=== PATIENT | female | born 1950 | race Caucasian/White ===

== ENCOUNTER → 2017-11-01 16:00 | Outpatient (CLI) | payer OTHER, SELFPAY ==
[2017-11-01 17:58] LABS: ALB/GLOB Ratio 1.1 RATIO (0.9-2.4); AST(SGOT) 29 U/L (15-37); Alanine Aminotransfer ALT/SGPT 31 U/L (13-56); Albumin, Serum 3.6 g/dL (3.2-5.0); Alkaline Phosphatase 81 U/L (45-117); Anion Gap 8 (5-15); BUN 21 mg/dL (7-18); BUN/Creat Ratio 37.9 RATIO (10-20); Calcium,Total 8.8 mg/dL (8.5-10.1); Chloride 109 mmol/L (98-107); Creatinine, Serum 0.55 mg/dL (0.55-1.02); EST Glomerular Filtration Rate 117 mL/min (>60); Est Glom Filt Rate - Afr Amer 141 mL/min (>60); Globulin 3.3 g/dL (2.2-4.2); Glucose 94 mg/dL (74-106); Potassium 3.7 mmol/L (3.5-5.1); Protein, Total 6.9 g/dL (6.4-8.2); Sodium Level 144 mmol/L (136-145)
== END ==
PROVIDERS: Family Provider Family Medicine; PCP Family Medicine; Visit Provider Family Medicine
DX: Z00.00 Encounter for general adult medical examination without abnormal findings (principal); I10 Essential (primary) hypertension
CPT/HCPCS: 36415; 80053

== ENCOUNTER → 2017-11-02 15:14 | Outpatient (CLI) | payer OTHER, SELFPAY | PROVIDERS: Family Provider Family Medicine; PCP Family Medicine; Visit Provider Family Medicine | DX: Z00.00 Encounter for general adult medical examination without abnormal findings (principal) | CPT/HCPCS: 82274 ==

== ENCOUNTER → 2017-11-28 15:53 | Outpatient (CLI) | payer OTHER, SELFPAY ==
--- NOTE | 2017-11-28 15:54 | BI_ITS ---
MAMMOGRAPHY - BILATERAL SCREENING REASON FOR EXAM: Female, 67 years old. Routine annual screening examination. PERTINENT HISTORY: Non-contributory. TECHNIQUE: Digital bilateral breast tony (3D mammographic acquisition) in the CC and MLO projections. 2-D mediolateral oblique (MLO) and craniocaudad (CC) views of both breasts were obtained. CAD: Full Field Digital Mammography with Computer Added Detection was performed. COMPARISON: Comparison is made with prior study dated November 27, 2016 and November 25, 2015. FINDINGS: Breast Composition: There are scattered areas of fibroglandular density. There are no dominant masses or suspicious calcifications. A tissue clip marker is once again seen in the anterior inferior medial portion of the right breast. Stable appearance of the small nodular density in the biopsy site in the inferior medial portion of the right breast. No other significant abnormalities are identified. There has been no significant change since the prior study. BI/SCREENING MAMM (CAD), BILAT IMPRESSION: Stable bilateral screening mammogram. Yearly follow-up mammogram recommended. (A) ASSESSMENT CATEGORY: BIRADS Category 2: Benign. A letter regarding these results will be sent to the patient by the facility within 30 days. Approximately 10% of breast cancers are not detected by mammography. A normal mammogram should not delay biopsy of a clinically suspicious abnormality. [id number] Electronically Signed: Herbert Hsieh MD at 8:55 EDT Tel [phone], Service support ,
== END ==
PROVIDERS: Family Provider Family Medicine; PCP Family Medicine; Visit Provider Family Medicine
DX: Z12.31 Encounter for screening mammogram for malignant neoplasm of breast (principal)
CPT/HCPCS: 77063; 77067

== ENCOUNTER 2017-12-31 10:58 | Day surgery (SDC) | payer OTHER, MEDICARE, SELFPAY ==
--- NOTE | 2017-12-25 11:53 | EKG12_ITS ---
Test Reason : PRE-OP Blood Pressure : / mmHG Vent. Rate : 072 BPM Atrial Rate : 072 BPM P-R Int : 144 ms QRS Dur : 092 ms QT Int : 398 ms P-R-T Axes : 059 028 038 degrees QTc Int : 435 ms Normal sinus rhythm Possible Left atrial enlargement Borderline ECG Confirmed by CHERYL CH, GRISELDA ([id number]), assignment editor VANESSA FOURNIER ([id number]) on 12/26/2017 11:18:37 AM Referred By: Eliecer Arita Confirmed By:GRISELDA LUNA MD
[2017-12-25 12:37] LABS: Hematocrit 43.5 % (37-47); Hemoglobin 14.7 g/dl (12.0-15.0); Mean Corp Hgb Conc 33.8 g/gl (32-36); Mean Corpuscular Hgb 30.4 pg (27.0-32.0); Mean Corpuscular Volume 90.1 fL (81-99); Mean Platelet Vol. 10.3 fl (6.2-12.0); Platelet Count 154 K/mm3 (150-450); RBC Distribution Width CV 12.6 % (11.6-14.6); RBC Distribution Width SD 41.3 fl (35.1-43.9); Red Blood Count 4.83 M/mm3 (4.2-5.4); White Blood Count 5.5 K/mm3 (4.4-11.0)
[2017-12-25 12:41] LABS: Scan Indicated on CBC? Y/N NO
[2017-12-25 13:20] LABS: Anion Gap 8 (5-15); BUN 11 mg/dL (7-18); BUN/Creat Ratio 19.3 RATIO (10-20); Calcium,Total 9.3 mg/dL (8.5-10.1); Chloride 108 mmol/L (98-107); Creatinine, Serum 0.57 mg/dL (0.55-1.02); EST Glomerular Filtration Rate 113 mL/min (>60); Est Glom Filt Rate - Afr Amer 137 mL/min (>60); Glucose 91 mg/dL (74-106); Potassium 3.7 mmol/L (3.5-5.1); Sodium Level 142 mmol/L (136-145)
[2017-12-31 11:25] VITALS: BP 158/80; PULSE 88; RESP 16; TEMP 37.3; O2SAT 97; BMI 35.4
[2017-12-31] MEDS: Cefazolin 2 GM in 0.9% Normal Saline 100 ML IV (12:18)
[2017-12-31] MEDS: Bupiv/Epi 0.5% Mpf 30 ML Vial (13:10)
--- NOTE | 2017-12-31 13:16 | PCM.IMDPSTOP ---
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
[2017-12-31 13:30] VITALS: BP 146/94; BP 158/80; PULSE 81; RESP 16; TEMP 36; O2SAT 99
[2017-12-31 13:45] VITALS: BP 158/80; BP 159/86; PULSE 78; RESP 16; O2SAT 95
[2017-12-31 14:00] VITALS: BP 150/76; BP 158/80; PULSE 68; RESP 16; O2SAT 95
[2017-12-31 14:14] VITALS: BP 130/82; BP 158/80; PULSE 71; RESP 16; TEMP 36.4; O2SAT 92
--- NOTE | 2017-12-31 14:15 | PCM.OP.BLANK ---
Operative Report Date of Procedure: 12/31/17 Primary Surgeon/Physician: Leno Longoria occupational health and safety officer: occupational health and safety officer: Pre-Operative Diagnosis: MMT, Grade 2 chondromalacia medial femoral condyle and patella, medial tibial plateau stress fracture left knee Post-Operative Diagnosis: same Surgery/Procedure Performed: Diagnostic and operative arthroscopy left knee with arthroscopic partial medial meniscectomy, chondroplasty medial femoral condyle and patella with biologic internal fixation stress fracture left tibia Estimated Blood Loss: minimal Specimen's Removed: none Type of Anesthesia: general ASA Class: 2 Indications: [Preoperative MRI revealed a medial meniscus tear, chondromalacia of the medial femoral condyle and patella and a medial tibial stress fx. ] Patient has failed conservative measures and at this point has elected to undergo the above procedure. Procedure Description: The patient was greeted in the preoperative area. The [left ] knee was marked with surgical marker. Preoperative antibiotics were administered. The patient was then taken to the operating suite and placed in a supine position on operating room table. After adequate anesthesia was obtained and airway was secured a well-padded tourniquet was placed on patient's affected extremity. Leg was then prepped and draped in usual sterile fashion. Surgical timeout was performed and confirmed with all present and surgery was commenced. Standard anteromedial anterolateral portals were made and a 30? arthroscope was then inserted into the knee. [ ]. The patellofemoral joint revealed grade 2 chondromalacia of the patella. The medial compartment was entered and the medial portal was established. Ther was noted to be grade 2 chondromalacia of the medial femoral condyle. A probe was utilized to probe the medial meniscus and there was noted to be a horizontal tear of the posterior horn emanating into the root. The ACL and PCL were probed and intact. The lateral compartment was entered and found to be free of pathology. A partial medial meniscectomy was performed with straight and angled basket punches. The meniscotome shaver was then used to remove the meniscal fragments and shape the remainder of the meniscus to a firm and stable rim. The shaver was then used to perform a chondroplasty on the medial femoral condyle and patella. The C-arm was then used to locate the area in question on the medial tibial plateau. The skin was marked in this area and a small stab incision was made over the medial tibial plateau. Th C-arm was then utilized to place the Nan trocar for the subchondroplasty procedure in the area of stress fracture on the medial tibial plateau. This placement was verified in orthogonal planes using the C-arm image intensifier. The biologic bone cement was then prepared on the back table. A total of 4 1 cc syringes were placed into the fracture site. C-arm flouroscopy was used to verify appropriate placement. The arthroscopy instruments were placed back into the knee to verify that no extravasation of biologic material had occurred into the joint. With this having been verified, the biologic bone fixation material was allowed to cure for 8 minutes. At this point all instruments were removed. Arthroscopic portals were closed in a standard fashion. 30 cc of 0.5% Marcaine was then injected into the knee. Well-padded nonadherent dressing was applied and secured with an Cedric wrap. The patient was taken to the recovery room in stable condition.
[2017-12-31 15:09] VITALS: BP 131/69; BP 158/80; PULSE 83; RESP 18; TEMP 37.1; O2SAT 96
== END 2017-12-31 15:12 | disposition home or self-care (01) ==
LOC: SDC 10:58 → AC 10:59
PROVIDERS: Physician Assistant; Family Provider Family Medicine; PCP Family Medicine; Visit Provider Orthopaedic Surgery
PROC: 3E0U3GB Introduction of Recombinant Bone Morphogenetic Protein into Joints, Percutaneous Approach (ICD-10-PCS; CPT 0707T; principal; 2017-12-31 12:10)
DX: M84.362A Stress fracture, left tibia, initial encounter for fracture (principal); M22.42 Chondromalacia patellae, left knee; S83.242A Other tear of medial meniscus, current injury, left knee, initial encounter; X58.XXXA Exposure to other specified factors, initial encounter; I10 Essential (primary) hypertension; Z79.899 Other long term (current) drug therapy; M19.90 Unspecified osteoarthritis, unspecified site
CPT/HCPCS: 01400; 29855; 29881; 36415; 73560; 76000; 80048; 85027; 93005; C1713; J7120; J2405

== ENCOUNTER → 2018-11-13 | Outpatient (CLI) | payer OTHER, MEDICARE, SELFPAY ==
[2018-11-12 14:32] VITALS: BMI 35.4
[2018-11-13 12:37] LABS: BUN 16 mg/dL (7-18); BUN/Creat Ratio 23.8 RATIO (10-20); Calcium,Total 9.4 mg/dL (8.5-10.1); Chloride 105 mmol/L (98-107); Creatinine, Serum 0.67 mg/dL (0.55-1.02); EST Glomerular Filtration Rate 93 mL/min (>60); Est Glom Filt Rate - Afr Amer 113 mL/min (>60); Glucose 106 mg/dL (74-106); Potassium 3.8 mmol/L (3.5-5.1); Sodium Level 144 mmol/L (136-145)
[2018-11-13 12:38] LABS: Anion Gap 9 (5-15)
== END | disposition home or self-care (01) ==
LOC: BIMLAB 09:44
PROVIDERS: Family Provider Family Medicine; PCP Family Medicine; Visit Provider Family Medicine
DX: I10 Essential (primary) hypertension (principal)
CPT/HCPCS: 36415; 80048

== ENCOUNTER → 2018-12-02 | Outpatient (CLI) | payer OTHER, MEDICARE, SELFPAY ==
[2018-11-12 14:32] VITALS: BMI 35.4
--- NOTE | 2018-12-02 15:43 | BI_ITS ---
MAMMOGRAPHY - BILATERAL SCREENING 3-D TOMOSYNTHESIS REASON FOR EXAM: Female, 68 years old. Bilateral Screening 3-D tomosynthesis PERTINENT HISTORY: No significant family history. TECHNIQUE: 2-D mammograms and 3-D Tomosynthesis of the breast (s) were performed. CAD was performed. COMPARISON: 11/28/2017 FINDINGS: The breast composition is composed of scattered fibroglandular density. Scattered benign calcifications are seen. No dense spiculated masses or suspicious microcalcifications are identified. No architectural distortion is identified. There is no skin thickening or retraction. There has been no significant change since the prior study. BI/SCREEN MAMM (CAD) W/JUAN LUIS BILAT IMPRESSION: No mammographic signs of malignancy. Routine yearly mammograms recommended. ASSESSMENT CATEGORY: BIRADS Category 1: Negative. A letter regarding these results will be sent to the patient by the facility within 30 days. FOLLOW UP RECOMMENDATION: Yearly follow up mammogram recommended. (A) Approximately 10% of breast cancers are not detected by mammography. A normal mammogram should not delay biopsy of a clinically suspicious abnormality. Electronically Signed: Sandip Sher MD at 7:47 EDT , Service support ,
== END | disposition home or self-care (01) ==
LOC: OPBI 15:41
PROVIDERS: Family Provider Family Medicine; PCP Family Medicine; Referring Provider Family Medicine; Visit Provider Family Medicine
DX: Z12.31 Encounter for screening mammogram for malignant neoplasm of breast (principal)
CPT/HCPCS: 77063; 77067

== ENCOUNTER → 2019-12-16 16:15 | Outpatient (CLI) | payer OTHER, MEDICARE, SELFPAY ==
[2019-12-16 15:51] VITALS: BMI 35.4
[2019-12-16 17:05] LABS: Anion Gap 6 (5-15); BUN 16 mg/dL (7-18); BUN/Creat Ratio 24.5 RATIO (10-20); Calcium,Total 9.4 mg/dL (8.5-10.1); Chloride 105 mmol/L (98-107); Creatinine, Serum 0.65 mg/dL (0.55-1.02); EST Glomerular Filtration Rate 96 mL/min (>60); Est Glom Filt Rate - Afr Amer 116 mL/min (>60); Glucose 95 mg/dL (74-106); Potassium 3.6 mmol/L (3.5-5.1); Sodium Level 139 mmol/L (136-145)
== END ==
PROVIDERS: PCP Family Medicine; Referring Provider Family Medicine; Visit Provider Family Medicine
DX: I10 Essential (primary) hypertension (principal)
CPT/HCPCS: 36415; 80048

== ENCOUNTER → 2020-12-21 15:45 | Outpatient (CLI) | payer OTHER, MEDICARE, SELFPAY ==
[2020-12-16 16:20] VITALS: BMI 35.4
[2020-12-21 17:12] LABS: ALB/GLOB Ratio 1.2 RATIO (0.9-2.4); AST(SGOT) 25 U/L (15-37); Alanine Aminotransfer ALT/SGPT 32 U/L (13-56); Albumin, Serum 3.9 g/dL (3.2-5.0); Alkaline Phosphatase 64 U/L (45-117); Anion Gap 8 (5-15); BUN 20 mg/dL (7-18); BUN/Creat Ratio 32.5 RATIO (10-20); Calcium,Total 9.3 mg/dL (8.5-10.1); Chloride 106 mmol/L (98-107); Creatinine, Serum 0.62 mg/dL (0.55-1.02); EST Glomerular Filtration Rate 102 mL/min (>60); Est Glom Filt Rate - Afr Amer 124 mL/min (>60); Globulin 3.3 g/dL (2.2-4.2); Glucose 162 mg/dL (74-106); Potassium 3.2 mmol/L (3.5-5.1); Protein, Total 7.2 g/dL (6.4-8.2); Sodium Level 141 mmol/L (136-145)
== END ==
PROVIDERS: PCP Family Medicine; Referring Provider Family Medicine; Visit Provider Family Medicine
DX: I10 Essential (primary) hypertension (principal)
CPT/HCPCS: 36415; 80053

== ENCOUNTER → 2021-01-04 17:00 | Outpatient (CLI) | payer OTHER, MEDICARE, SELFPAY ==
[2020-12-16 16:20] VITALS: BMI 35.4
--- NOTE | 2021-01-04 16:22 | BI_ITS ---
MAMMOGRAPHY - BILATERAL SCREENING REASON FOR EXAM: Female, 71 years old. Routine annual screening examination. PERTINENT HISTORY: Non-contributory. History of prior right ultrasound-guided breast biopsy. TECHNIQUE: Digital bilateral breast juan luis (3D mammographic acquisition) in the CC and MLO projections. 2-D mediolateral oblique (MLO) and craniocaudad (CC) views of both breasts were obtained. CAD: Full Field Digital Mammography with Computer Added Detection was performed. COMPARISON: Comparison is made with prior study dated 12/02/2018 and 11/28/2017. FINDINGS: Breast Composition: There are scattered areas of fibroglandular density. There are no dominant masses or suspicious calcifications. A tissue clip marker is once again seen in the anterior inferior medial portion of the right breast at the site of a tiny nodule. No other significant abnormalities are identified. There has been no significant change since the prior study. BI/SCRN MAMM (CAD)W/JUAN LUIS BILAT IMPRESSION: Stable bilateral screening mammogram. Yearly follow-up mammogram recommended. (A) ASSESSMENT CATEGORY: BIRADS Category 2: Benign. A letter regarding these results will be sent to the patient by the facility within 30 days. Approximately 10% of breast cancers are not detected by mammography. A normal mammogram should not delay biopsy of a clinically suspicious abnormality. [id number] Electronically Signed: Herbert Hsieh MD at 8:37 EDT , Service support ,
== END ==
PROVIDERS: PCP Family Medicine; Referring Provider Family Medicine; Visit Provider Family Medicine
DX: Z12.31 Encounter for screening mammogram for malignant neoplasm of breast (principal)
CPT/HCPCS: 77063; 77067

== ENCOUNTER → 2021-01-18 15:23 | Outpatient (CLI) | payer OTHER, MEDICARE, SELFPAY ==
[2021-01-18 16:53] LABS: Potassium 3.6 mmol/L (3.5-5.1)
[2021-01-18 17:06] LABS: Hemoglobin A1c 5.6 % (3.8-5.6)
== END ==
PROVIDERS: PCP Family Medicine; Referring Provider Family Medicine; Visit Provider Family Medicine
DX: E87.6 Hypokalemia (principal); R73.01 Impaired fasting glucose
CPT/HCPCS: 36415; 83036; 84132

== ENCOUNTER 2021-06-03 06:49 | Day surgery (SDC) | payer OTHER, MEDICARE, SELFPAY ==
--- NOTE | 2021-05-26 12:07 | EKG12_ITS ---
Test Reason : PRE OP Blood Pressure : / mmHG Vent. Rate : 077 BPM Atrial Rate : 077 BPM P-R Int : 136 ms QRS Dur : 088 ms QT Int : 374 ms P-R-T Axes : 053 015 012 degrees QTc Int : 423 ms Normal sinus rhythm Normal ECG Confirmed by ADRIANE CH, KEL ([id number]), brands editor TRU LOVE ([id number]) on 05/27/2021 7:46:43 AM Referred By: Leno Longoria Confirmed By:SAMUEL FORREST MD
[2021-05-26 12:39] LABS: Hematocrit 44.9 % (37-47); Hemoglobin 14.6 g/dL (12.0-15.0); Mean Corp Hgb Conc 32.5 g/dL (32-36); Mean Corpuscular Hgb 29.6 pg (27.0-32.0); Mean Corpuscular Volume 91.1 fL (81-99); Mean Platelet Vol. 9.5 fl (6.2-12.0); Platelet Count 160 K/mm3 (150-450); RBC Distribution Width CV 12.3 % (11.6-14.6); RBC Distribution Width SD 41.3 fl (35.1-43.9); Red Blood Count 4.93 M/mm3 (4.2-5.4)
[2021-05-26 12:58] LABS: Anion Gap 5 (5-15); BUN 16 mg/dL (7-18); Calcium,Total 9.8 mg/dL (8.5-10.1); Chloride 106 mmol/L (98-107); Creatinine, Serum 0.64 mg/dL (0.55-1.02); EST Glomerular Filtration Rate 98 mL/min (>60); Est Glom Filt Rate - Afr Amer 118 mL/min (>60); Glucose 109 mg/dL (74-106); Potassium 3.8 mmol/L (3.5-5.1); Sodium Level 140 mmol/L (136-145)
--- NOTE | 2021-05-26 16:50 | PCM.HP.BLA ---
History and Physical History and Physical [facility] Patient Name: Megan Rene : 1950 From: [facility] DE [place] [facility] PA-C DATE OF SURGERY: 06/03/2021 SCHEDULED PROCEDURE: right knee arthroscopy with medial meniscectomy and subchondroplasty of the medial tibial plateau HISTORY OF PRESENT ILLNESS: Preoperative history and physical exam was performed on October 23, 2021. This is a 71-year-old female who is been having ongoing pain since the end of March 2021. Patient cannot recall specific trauma or injury. Her pain has been intermittent and dull. It can still reach as high as a 7/10 at worst and 5/10 on average. Activities of daily living and range of motion exercises aggravate her pain. Patient has tried Cedric wrap, topical ointments, and nonsteroidal anti-inflammatory including naproxen and glucosamine chondroitin. Patient has been using a walker secondary to the pain in the right knee. Patient has had an MRI of the right knee. She has had a similar procedure done on the left knee in 2018 and doing well from that procedure. She currently denies any chest pain, shortness of breath, fevers chills, recent infections. She has medical history pertinent for hypertension. After failing conservative measures and discussing treatment options with Dr. Leno Longoria, the patient does wish to proceed with a right knee arthroscopy with medial meniscectomy and subchondroplasty of the medial tibial plateau. REVIEW OF SYSTEMS: ROS: Const: Denies change in appetite, fever and weight change. CV: Denies chest pain, heart murmur and irregular heartbeat. Resp: Denies cough, pneumonia, shortness of breath, tuberculosis and wheezing. GI: Denies constipation, diarrhea, heartburn, nausea, rectal itching, bloody stools and vomiting. : Reports incontinence. Musculo: Reports trouble walking, but denies leg swelling, pain and weakness. Skin: Denies Raynaud's, history of shingles and tattoo. Neuro: Denies ambulatory dysfunction, dizziness, numbness/tingling and tremor. Psych: Denies anxiety, insomnia and stress. Devon/Lymph: Denies anemia, bleeding/bruising tendency and past transfusion. Reviewed, no changes. PAST MEDICAL HISTORY: Advance Care Plan: No Advance Directives Effective Date: 12/06/2017 PMH: Medical Problems: Arthritis, High Blood Pressure Accidents: None Surgical Hx: Gallbladder - (2000) [facility] DR EDDY Tubal Ligation - (1979) [facility] DR SALEH LT Knee Arthroscopy - (12/31/2017) [facility] @ [facility] Anesthesia Complications: None Assistive Devices: Glasses, Dentures Reviewed and updated. SOCIAL HISTORY: SH: Marital: .Occupation: [employer].Work Status: Currently Working.Hand Dominance: Left-handed. Personal Habits: Cigarette Use: Never Smoked Cigarettes.Smokeless Tobacco: Never Used Smokeless Tobacco.E-Cigarette Use: Never used.Alcohol: Denies use.Drug Use: Denies Use.Enjoy Exercising: Exercises 1-3 X/Week. Reviewed and updated. VITALS: Ht: 61 Wt: 180lb Wt k.648 BMI: 34.0 BP: 142/82 Pulse: 82 Resp: 16 T: 97.4 T: 36.3C Pain Level: 3 ALLERGIES: Sulfa - Hives MEDICATIONS: [place] 5-325 mg 1-2 by mouth every 6 hour as needed pain, Calcium + D3 600-200 MG-Unit 2 tabs daily, Klor-Con M10 10 Meq 2 tabs daily, Olmesartan Medoxomil 40 mg by mouth, Hydrochlorothiazide 25 mg 1 by mouth every day, Move Free Joint Health Advanced 1 by mouth twice a day, Aleve 220 mg as needed PRE-OP EXAM: General appearance:NORMAL Other: Eyes: Conjunctivae and lids: NORMAL Pupils: ERR Ears, Nose, Mouth, and Throat: NORMAL Other: Inspection of lips, teeth and gums: NORMAL Other: Neck: Examination of neck: no masses noted. Respiratory: Assessment of respiratory effort: NORMAL Other: Auscultation of lungs: clear to auscultation no wheezes, rhonchi or rales. Cardiovascular: Auscultation of heart: regular rate and rhythm, no murmurs, gallops or rubs. PHYSICAL EXAMINATION: Right knee is cool to touch without erythema or signs of infection. There is trace effusion. She has tenderness to palpation along the medial joint line and tibial plateau. Range of motion: 0 extension to approximately 100 flexion. Stable to varus/valgus stress test, stable anterior/posterior drawer. Positive pain associated with Lemuel's examination. Sensation intact to light touch. IMAGING STUDIES: Previous x-rays of the right knee reveal moderate medial compartmental osteoarthritis and patellofemoral compartment osteoarthritis with mild bilateral osteoarthritis. Previous MRI of the right knee from [facility] on May 12, 2021 does reveal a medial meniscus tear with stress fracture of the medial tibial rim. IMPRESSION: 1. Right knee medial meniscus tear 2. Right knee medial tibial plateau stress fracture 3. Right knee osteoarthritis 4. Hypertension PLAN: Dr. Leno Longoria did discuss and review with the patient all treatment options including surgical versus nonsurgical options. Patient does wish to proceed with the above-stated procedure. Potential risks, benefits, and complications of the procedure were discussed in detail including but not limited to , infection, nerve and blood vessel damage, persistent pain, numbness, tingling, paresthesias, blood clot, pulmonary embolism, and requirement for possible further surgery. The patient expressed full understanding and has no further questions for the doctor. Patient does agree to proceed with the above-stated procedure and has signed the surgery consent form. Patient will undergo preoperative lab work and EKG. She will bring her walker 2 day of procedure. She'll be weightbearing as tolerated following the procedure. She was given [place] for postoperative pain control. We discussed the current risks associated with COVID 19. This does include the risk of exposure while in the hospital. Patient was reassured local hospitals have low infection rates and are taking all necessary precautions to avoid exposure to patients. In addition, we discussed strategies that can be used to help limit exposure including those that limit the patient's time in the hospital. Also using strategies to limit the patient's need for continued inpatient services after being discharged from the hospital. Patient was notified that we will need to comply with any screening or testing the hospital wishes to perform or that surgery may be delayed for any positive results. This dictation was created using voice recognition software. Phonetic and/or grammatical errors may exist. ___ I have re-examined the patient. There are no clinical changes since date of exam. ___ See progress notes for changes. ___ Dictated on admission Date: Time: Signature:
[2021-06-03] VITALS (7 sets, daily range): BP systolic 112–133; BP diastolic 61–82; PULSE 65–86; RESP 16; TEMP 36.2–36.9; O2SAT 95–99; BMI 34.8
[2021-06-03] MEDS: Lactated Ringers 1,000 ML 15 ML IV ×2 (07:23→09:58)
--- NOTE | 2021-06-03 08:29 | RAD_ITS ---
STUDY: X-RAY - RIGHT KNEE REASON FOR EXAM: Female, 71 years old. Intraoperative digital documentation images subchondroplasty. TECHNIQUE: 3 intraoperative digital documentation view(s) of the knee. COMPARISON: None. FINDINGS: 3 intraoperative digital documentation images show surgical instrument projected over the medial tibial plateau. Contrast is noted. RAD/Knee 1 or 2 Views IMPRESSION: Intraoperative digital documentation views as described. Electronically Signed: Eliecer Romo MD at 10:00 EST , Service support ,
[2021-06-03] MEDS: Cefazolin 2 GM in 0.9% Normal Saline 100 ML IV (08:39)
[2021-06-03] MEDS: Epinephrine (1 mg/ml) 1 MG/ML VIAL (09:00)
[2021-06-03] MEDS: Lidocaine 1% /Epi 1:100 (50ml) 50 ML VIAL (09:25)
[2021-06-03] MEDS: Ketorolac 15 MG/ML Vial IV (09:28)
--- NOTE | 2021-06-03 09:34 | OP.PCM_ITS ---
Report of Operation Date of Procedure: 06/03/21 Pre-Operative Diagnosis: Internal derangement right knee Post-Operative Diagnosis: MMT, Grade 3 and 4 chondromalacia MFC and PFJ, subchondral insufficiency fracture medial tibial plateau Surgery/Procedure Performed:: Diagnostic and operative arthroscopy with partial medial meniscectomy, chondroplasty of the MFC and PFJ and subchondroplasty of the medial tibial plateau Surgeon: Leno Longoria pickers material handlers: Jero Altman Type of Anesthesia: General Anesthesiologist: Chace Marquez Admit VTE Documentation VTE Present on Admission: No VTE Mechan Device Prophylaxis: SCD's and Thigh High MONICA Hose Reason prophylaxis not ordered:: Treatment Not Indicated
== END 2021-06-03 23:59 | disposition home or self-care (01) ==
LOC: SDC 06:49 → AC 06:49
PROVIDERS: Physician Assistant Surgical; PCP Family Medicine; Referring Provider Orthopaedic Surgery; Visit Provider Orthopaedic Surgery
PROC: (CPT 29881; principal; 2021-06-03 08:10)
DX: S83.241A Other tear of medial meniscus, current injury, right knee, initial encounter (principal); M17.11 Unilateral primary osteoarthritis, right knee; M22.41 Chondromalacia patellae, right knee; S82.131A Displaced fracture of medial condyle of right tibia, initial encounter for closed fracture; I10 Essential (primary) hypertension; M19.90 Unspecified osteoarthritis, unspecified site; Z79.899 Other long term (current) drug therapy
CPT/HCPCS: 29881; 01400; 29855; 36415; 73560; 76000; 80048; 85027; 87426; 93005; C1713; C9803; J7120; J2405

== ENCOUNTER → 2022-01-26 | Outpatient (CLI) | payer OTHER, MEDICARE, SELFPAY ==
[2022-01-26 16:47] LABS: Anion Gap 6 (5-15); BUN 17 mg/dL (7-18); BUN/Creat Ratio 21.7 RATIO (10-20); Calcium,Total 9.4 mg/dL (8.5-10.1); Chloride 106 mmol/L (98-107); Creatinine, Serum 0.78 mg/dL (0.55-1.02); EST Glomerular Filtration Rate 77 mL/min (>60); Est Glom Filt Rate - Afr Amer 93 mL/min (>60); Glucose 104 mg/dL (74-106); Potassium 3.6 mmol/L (3.5-5.1); Sodium Level 140 mmol/L (136-145)
== END | disposition home or self-care (01) ==
LOC: BIMLAB 15:32
PROVIDERS: PCP Family Medicine; Referring Provider Family Medicine; Visit Provider Family Medicine
DX: E87.6 Hypokalemia (principal)
CPT/HCPCS: 36415; 80048

== ENCOUNTER → 2022-02-14 | Outpatient (CLI) | payer OTHER, MEDICARE, SELFPAY ==
--- NOTE | 2022-02-14 15:49 | BI_ITS ---
MAMMOGRAPHY - BILATERAL SCREENING REASON FOR EXAM: Female, 72 years old. Routine annual screening examination. PERTINENT HISTORY: Non-contributory. Prior right ultrasound-guided breast biopsy. TECHNIQUE: Digital bilateral breast juan luis (3D mammographic acquisition) in the CC and MLO projections. 2-D mediolateral oblique (MLO) and craniocaudad (CC) views of both breasts were obtained. CAD: Full Field Digital Mammography with Computer Added Detection was performed. COMPARISON: Comparison is made with prior study 01/04/2021 and 12/03/1999. FINDINGS: Breast Composition: There are scattered areas of fibroglandular density. There are no dominant masses or suspicious calcifications. A tissue clip marker is once again seen in the anterior inferior medial portion of the right breast. No other significant abnormalities are identified. There has been no significant change since the prior study. BI/SCRN MAMM (CAD)W/JUAN LUIS BILAT IMPRESSION: Stable bilateral screening mammogram. Yearly follow-up mammogram recommended. (A) ASSESSMENT CATEGORY: BIRADS Category 2: Benign. A letter regarding these results will be sent to the patient by the facility within 30 days. Approximately 10% of breast cancers are not detected by mammography. A normal mammogram should not delay biopsy of a clinically suspicious abnormality. [id number] Electronically Signed: Herbert Hsieh MD at 21:21 EDT ,
== END | disposition home or self-care (01) ==
LOC: OPBI 15:48
PROVIDERS: PCP Family Medicine; Visit Provider Family Medicine
DX: Z12.31 Encounter for screening mammogram for malignant neoplasm of breast (principal)
CPT/HCPCS: 77063; 77067

== ENCOUNTER → 2023-02-02 | Outpatient (CLI) | payer OTHER, MEDICARE, SELFPAY ==
[2023-02-02 17:00] LABS: AST(SGOT) 17 U/L (15-37); Alanine Aminotransfer ALT/SGPT 26 U/L (13-56); Albumin, Serum 3.5 g/dL (3.2-5.0); Alkaline Phosphatase 74 U/L (45-117); Anion Gap 5 (5-15); BUN 24 mg/dL (7-18); BUN/Creat Ratio 37.2 RATIO (10-20); Calcium,Total 9.1 mg/dL (8.5-10.1); Chloride 113 mmol/L (98-107); Cholesterol 161 mg/dL (200); Creatinine, Serum 0.65 mg/dL (0.55-1.02); EST Glomerular Filtration Rate 96 mL/min (>60); Est Glom Filt Rate - Afr Amer 116 mL/min (>60); Globulin 3.4 g/dL (2.2-4.2); Glucose 98 mg/dL (74-106); High Density Lipoprotein 55 mg/dL; Potassium 3.6 mmol/L (3.5-5.1); Protein, Total 6.9 g/dL (6.4-8.2); Sodium Level 143 mmol/L (136-145); Triglycerides 84 mg/dL; Very Low Density Lipoprotein 17 mg/dL (5-40)
== END | disposition home or self-care (01) ==
LOC: BIMLAB 15:12
PROVIDERS: PCP Family Medicine; Referring Provider Family Medicine; Visit Provider Family Medicine
DX: I10 Essential (primary) hypertension (principal)
CPT/HCPCS: 36415; 80053; 80061

== ENCOUNTER → 2023-02-19 | Outpatient (CLI) | payer OTHER, MEDICARE, SELFPAY ==
--- NOTE | 2023-02-19 15:36 | BI_ITS ---
MAMMOGRAPHY - BILATERAL SCREENING REASON FOR EXAM: Female, 73 years old. Routine annual screening examination. PERTINENT HISTORY: Non-contributory. Prior right ultrasound-guided breast biopsy. TECHNIQUE: Digital bilateral breast juan luis (3D mammographic acquisition) in the CC and MLO projections. 2-D mediolateral oblique (MLO) and craniocaudad (CC) views of both breasts were obtained. CAD: Full Field Digital Mammography with Computer Added Detection was performed. COMPARISON: Comparison is made with prior study February 14, 2022 and January 04, 2021. FINDINGS: Breast Composition: There are scattered areas of fibroglandular density. There are no dominant masses or suspicious calcifications. A tissue clip marker is once again seen in the anterior inferior medial aspect of the right breast. Adjacent to the tissue clip marker, there is a stable 7.2 mm nodule. No other significant abnormalities are identified. There has been no significant change since the prior study. BI/SCRN MAMM (CAD)W/JUAN LUIS BILAT IMPRESSION: Stable bilateral screening mammogram. Yearly follow-up mammogram recommended. (A) ASSESSMENT CATEGORY: BIRADS Category 2: Benign. A letter regarding these results will be sent to the patient by the facility within 30 days. Approximately 10% of breast cancers are not detected by mammography. A normal mammogram should not delay biopsy of a clinically suspicious abnormality. [id number] Electronically Signed: Herbert Hsieh MD at 14:44 EDT ,
== END | disposition home or self-care (01) ==
LOC: OPBI 15:35
PROVIDERS: PCP Family Medicine; Referring Provider Family Medicine; Visit Provider Family Medicine
DX: Z12.31 Encounter for screening mammogram for malignant neoplasm of breast (principal)
CPT/HCPCS: 77063; 77067

== ENCOUNTER → 2024-02-12 | Outpatient (CLI) | payer MEDICARE, SELFPAY ==
[2024-02-12 15:36] LABS: ALB/GLOB Ratio 1.1 RATIO (0.9-2.4); AST(SGOT) 26 U/L (15-37); Alanine Aminotransfer ALT/SGPT 26 U/L (13-56); Albumin, Serum 3.9 g/dL (3.2-5.0); Alkaline Phosphatase 48 U/L (45-117); Anion Gap 5 (5-15); BUN 14 mg/dL (7-18); BUN/Creat Ratio 20.1 RATIO (10-20); Chloride 106 mmol/L (98-107); EST Glomerular Filtration Rate 88 mL/min (>60); Est Glom Filt Rate - Afr Amer 106 mL/min (>60); Globulin 3.5 g/dL (2.2-4.2); Glucose 105 mg/dL (74-106); Potassium 3.7 mmol/L (3.5-5.1); Protein, Total 7.4 g/dL (6.4-8.2); Sodium Level 139 mmol/L (136-145)
== END | disposition home or self-care (01) ==
PROVIDERS: PCP Family Medicine; Referring Provider Family Medicine; Visit Provider Family Medicine
DX: I10 Essential (primary) hypertension (principal)
CPT/HCPCS: 36415; 80053

== ENCOUNTER → 2024-02-28 | Outpatient (CLI) | payer MEDICARE, SELFPAY ==
--- NOTE | 2024-02-28 10:40 | BI_ITS ---
MAMMOGRAPHY - BILATERAL SCREENING 3-D TOMOSYNTHESIS REASON FOR EXAM: Female, 74 years old. breast cancer screening PERTINENT HISTORY: No significant family history. TECHNIQUE: 2-D mammograms and 3-D Tomosynthesis of the breast (s) were performed. CAD was performed. COMPARISON: 02/19/2023 FINDINGS: The breast composition is composed of scattered fibroglandular density. Scattered benign calcifications are seen. 1 cm oval obscured equal density mass in the lower quadrant right breast at anterior depth and focal compression views recommended for further evaluation. No dominant mass left breast. No suspicious calcifications.. No architectural distortion is identified. There is no skin thickening or retraction. BI/SCRN MAMM (CAD)W/JUAN LUIS BILAT IMPRESSION: Further imaging evaluation is recommended. ASSESSMENT CATEGORY: BIRADS Category 0: Incomplete. Need additional imaging evaluation as above. A letter regarding these results will be sent to the patient by the facility within 30 days. FOLLOW UP RECOMMENDATION: Additional imaging recommended as above. (E) Approximately 10% of breast cancers are not detected by mammography. A normal mammogram should not delay biopsy of a clinically suspicious abnormality. Electronically Signed: Dimas Cardenas MD at 13:20 EDT ,
== END | disposition home or self-care (01) ==
LOC: OPBI 10:40
PROVIDERS: PCP Family Medicine; Referring Provider Nurse Practitioner; Visit Provider Nurse Practitioner
DX: Z12.31 Encounter for screening mammogram for malignant neoplasm of breast (principal)
CPT/HCPCS: 77063; 77067

== ENCOUNTER → 2024-03-07 | Outpatient (CLI) | payer MEDICARE, SELFPAY ==
--- NOTE | 2024-03-07 08:49 | BI_ITS ---
MAMMOGRAPHY - UNILATERAL DIAGNOSTIC: RIGHT BREAST REASON FOR EXAM: Female, 74 years old. Abnormal screening mammogram. PERTINENT HISTORY: Non-contributory. TECHNIQUE: 90 degree lateral and compression spot views of the right breast were obtained. CAD: Full Field Digital Mammography with Computer Added Detection was performed. COMPARISON: Comparison is made with prior study dated February 28, 2024. FINDINGS: Breast Composition: There are scattered areas of fibroglandular density. A faint 1 cm nodule is seen in the anterior inferior medial aspect of the right breast. A tissue clip marker is seen at that site. Correlation with the ultrasound is recommended. No other significant abnormalities are identified. BI/DIAG MAMM W/CAD, UNILAT IMPRESSION: Faint 1 cm nodule in the inferior anterior medial aspect of the right breast. A tissue clip marker is seen in that region. Correlation with ultrasound is recommended. ASSESSMENT CATEGORY: BIRADS Category 0: Incomplete. Need additional imaging evaluation. A letter regarding these results will be sent to the patient by the facility within 30 days. Approximately 10% of breast cancers are not detected by mammography. A normal mammogram should not delay biopsy of a clinically suspicious abnormality. Electronically Signed: Herbert Hsieh MD at 9:56 EDT ,
--- NOTE | 2024-03-07 08:49 | US_ITS ---
STUDY: ULTRASOUND BREAST - RIGHT REASON FOR EXAM: Female, 74 years old. Abnormal screening mammogram. TECHNIQUE: Axial and longitudinal images of the RIGHT breast were performed with a high resolution ultrasound transducer. # OF IMAGES: 36 COMPARISON: Comparison is made with prior mammogram done earlier today. FINDINGS: RIGHT Breast: The lower inner quadrant of the right breast was examined with ultrasound. Dilated ducts. No solid or cystic nodule is seen. US/Breast Limited Unilateral IMPRESSION: Dilated ducts are seen in the lower inner quadrant of the right breast. ASSESSMENT CATEGORY: BIRADS Category 2: Benign. A letter regarding these results will be sent to the patient by the facility within 30 days. Electronically Signed: Herbert Hsieh MD at 12:17 EDT ,
== END | disposition home or self-care (01) ==
LOC: OPBI 08:46
PROVIDERS: PCP Family Medicine; Referring Provider Nurse Practitioner; Visit Provider Nurse Practitioner
DX: R92.8 Other abnormal and inconclusive findings on diagnostic imaging of breast (principal)
CPT/HCPCS: 76642; 77065

== ENCOUNTER → 2025-03-10 | Outpatient (CLI) | payer MEDICARE, SELFPAY ==
--- NOTE | 2025-03-10 11:00 | BI_ITS ---
EXAM: SCRN MAMM (CAD)W/JUAN LUIS BILAT DATE: 03/10/2025 CLINICAL HISTORY: F, Age 75 y/o , SCREENING No family history. Prior right ultrasound-guided breast biopsy. TECHNIQUE: Procedure Code: [id number] Modality: MG Procedure: SCRN MAMM (CAD)W/JUAN LUIS BILAT COMPARISON: Prior exam(s) dated February 28, 2024.. FINDINGS: TISSUE DENSITY: There are scattered areas of fibroglandular density. Bilateral Breast Mammographic Findings: No significant masses, calcifications or other abnormalities are identified. A tissue clip marker is seen along the anterior inferior medial aspect of the right breast. No suspicious masses, areas of developing architectural distortion, or suspicious calcifications. There has been no significant interval change. BI/SCRN MAMM (CAD)W/JUAN LUIS BILAT IMPRESSION: Stable bilateral screening mammogram. OVERALL FINAL ASSESSMENT BI-RADS 2: BENIGN RECOMMENDATION: Routine annual follow-up in 1 Year Additional Recommendation none A letter with findings and recommendations will be mailed to the patient. Reading Location: [facility]
== END | disposition home or self-care (01) ==
PROVIDERS: PCP Family Medicine; Referring Provider Family Medicine; Visit Provider Family Medicine
DX: Z12.31 Encounter for screening mammogram for malignant neoplasm of breast (principal)
CPT/HCPCS: 77063; 77067

== ENCOUNTER → 2025-03-18 | Outpatient (CLI) | payer MEDICARE, SELFPAY ==
--- OUTSIDE RECORDS SUMMARY | 2025-03-18 10:45 | XMS RPT_ITS | CCD ---
Author Organization [facility] Care Team Providers Care Steamfitter Supervisor Name Role Phone CORTEZ CHAMBERS Unavailable Unavailable ARLYN, CORTEZ Hudson Unavailable Unavailable CORTEZ CHAMBERS R Unavailable Unavailable CORTEZ CHAMBERS R Unavailable Unavailable CORTEZ CHAMBERS Unavailable Unavailable Dr. Cortez Chambers Primary Care Provider [phone] Dr. Cortez Chambers Referring Provider [phone] EDYTA Ledesma Attending Provider Unavailab Dr. Cortez Holt Attending Provider [phone] Dr. Cortez Chambers Primary Care Provider [phone] Dr. Cortez Chambers Attending Provider [phone] Dr. Cortez Chambers Referring Provider [phone] Dr. Cortez Chambers DO Primary Care Physician Dr. Cortez Chambers DO Attending Physician [phone] Dr. Cortez Chambers DO Referring Provider [phone] Cortez Chambers Primary Care Unavailable Cortez Chambers Referring Unavailable Cortez Chambers Attending Unavailable Cortez Chambers Referring Unavailable Cortez Chambers Attending Unavailable Cortez Chambers Primary Care Unavailable Allergies Allergy Classification Reported Allergen(s) Allergy Type Date of Onset Reaction(s) Facility (3 sources) Sulfonamides (Antibiotic) Allergy to substance 2 [facility] (1 source) Sulfonamides (Antibiotic) Drug allergy (disorder) 5 [facility] Repository Medications Current Medications Medication Drug Class(es) Dates Sig (Normalized) Sig (Original) 8 hr acetaminophen 650 mg extended release oral tablet (5 sources) Start: 01-25-2022 End: 02-01-2023 take 1 tablet by mouth every twelve hours as needed calcium carbonate 1500 mg / cholecalciferol 0.01 mg oral tablet (3 sources) Vitamin D Start: 12-27-2017 Start: 12-27-2017 Calcium Carbon ate-Vitamin D3 Active 1 EACH PO TWICE A DAY December 27, 2017 12:00am fexofenadine hydrochloride 180 mg oral tablet (3 sources) Histamine-1 Receptor Antagonist Start: 12-27-2017 take 1 tablet by mouth once daily as needed Cwuequysshc-Oiw-Wopxc r-D3-Bosw (2 sources) Start: 12-27-2017 Glucosamine-M iz-Kbwmtm-O4- Bosw Active 2 EACH PO DAILY December 27, 2017 12:00am Tbuyszgxegc-Flk-Qrhka r-D3-Bosw 1 EACH tablet (1 source) Start: 12-27-2017 take 1 tablet by mouth once daily olmesartan medoxomil 40 mg oral tablet (20 sources) Angiotensin 2 Receptor Matthew Start: 02-25-2025 take 1 tablet by mouth once daily Start: 03-18-2019 End: 02-25-2025 take 1 tablet by mouth once daily Olmesartan 40 mg tablet Discontinued 40 mg PO DAILY 90 3 March 03, 2022 9:12am February 01, 2023 4:04pm bp Completed/Discontinued Medications Medication Drug Class(es) Dates Sig (Normalized) Sig (Original) Acai Desai Extract (3 sources) Start: 12-27-2017 End: 11-12-2018 take 1 capsule by mouth once daily Acai Desai Extract 500 MG capsule Discontinued 1000 mg PO DAILY December 27, 2017 12:00am November 12, 2018 2:28pm SUPPLEMENT Start: 12-27-2017 End: 11-12-2018 take 1000 mg by mouth once daily Acai Desai Extract Discontinued 1000 MG PO DAILY December 27, 2017 12:00am November 12, 2018 2:28pm amoxicillin 875 mg / clavulanate 125 mg oral tablet (3 sources) Penicillin-class Antibacterial Start: 01-29-2021 End: 02-08-2021 Amoxicillin-Pot Clavulanate (Augmentin) 875-125 mg tablet Discontinued 1 {tbl} PO Q12H 20 10 0 January 29, 2021 12:00am February 07, 2021 12:00am February 08, 2021 12:01am Acute sinusitis, unspecified cholecalciferol 0.025 mg oral capsule (3 sources) Vitamin D Start: 10-31-2017 End: 10-31-2017 take 1 capsule by mouth once daily Cholecalciferol (Vitamin D3) 1,000 unit capsule Discontinued 1000 U PO daily October 31, 2017 12:00am October 31, 2017 4:02pm hydroCHLOROthiazide 12.5 mg oral tablet (18 sources) Thiazide Diuretic Start: 11-17-2021 End: 02-24-2025 take 1 tablet by mouth once daily Hydrochlorothiazide 12.5 mg tablet Discontinued 12.5 mg PO DAILY February 13, 2024 8:29am February 24, 2025 10:58am Start: 03-18-2019 End: 11-17-2021 take 1 tablet by mouth once daily Hydrochlorothiazide 25 mg tablet Discontinued 25 mg PO DAILY December 16, 2020 4:22pm November 17, 2021 10:26am hydroCHLOROthiazide 25 mg / losartan potassium 100 mg oral tablet (9 sources) Thiazide Diuretic, Angiotensin 2 Receptor Matthew Start: 12-05-2017 End: 11-12-2018 Losartan-Hydrochlorothiazide 100-25 mg tablet Discontinued 1 {tbl} PO daily April 17, 2018 2:16pm November 12, 2018 2:38pm BP Start: 12-05-2017 End: 11-12-2018 take 1 tablet by mouth once daily Losartan-Hydrochlorothiazide Discontinue d 1 TABLET PO daily April 17, 2018 2:16pm November 12, 2018 2:38pm hydroCHLOROthiazide 25 mg / olmesartan medoxomil 40 mg oral tablet (9 sources) Thiazide Diuretic, Angiotensin 2 Receptor Matthew Start: 12-18-2018 End: 12-16-2020 Olmesartan-Hydrochlorothiazi de 40-25 mg tablet Discontinued 1 {tbl} PO DAILY December 18, 2018 12:00am December 16, 2020 4:18pm Start: 12-18-2018 End: 12-16-2020 take 1 tablet by mouth once daily Olmesartan-Hydrochlorothiazide Discontin ued 1 TABLET PO DAILY December 18, 2018 12:00am December 16, 2020 4:18pm Start: 12-04-2018 End: 12-18-2018 Olmesartan-Hydrochlorothiazi de 40-12.5 mg tablet Discontinued 1 {tbl} PO DAILY December 04, 2018 12:00am December 18, 2018 3:21pm Start: 12-04-2018 End: 12-18-2018 take 1 tablet by mouth once daily Olmesartan-Hydrochlorothiazide Discontin ued 1 TABLET PO DAILY 90 December 04, 2018 12:00am December 18, 2018 3:21pm Start: 11-12-2018 End: 12-18-2018 Olmesartan-Hydrochlorothiazi de 20-12.5 mg tablet Discontinued 1 {tbl} PO DAILY 90 November 12, 2018 12:00am December 18, 2018 3:19pm Start: 11-12-2018 End: 12-18-2018 take 1 tablet by mouth once daily Olmesartan-Hydrochlorothiazide Discontin ued 1 TABLET PO DAILY November 12, 2018 12:00am December 18, 2018 3:19pm hydroCHLOROthiazide 25 mg / valsartan 320 mg oral tablet (6 sources) Thiazide Diuretic, Angiotensin 2 Receptor Matthew Start: 10-31-2017 End: 12-05-2017 Valsartan-Hydrochlorothiazid e 320-25 mg tablet Discontinued 1 {tbl} PO daily 90 3 October 31, 2017 4:25pm December 05, 2017 8:54am Start: 10-31-2017 End: 12-05-2017 take 1 tablet by mouth once daily Valsartan-Hydrochlorothiazide Discontinu ed 1 TABLET PO daily October 31, 2017 4:25pm December 05, 2017 8:54am naproxen 500 mg oral tablet (9 sources) Nonsteroidal Anti-inflammatory Drug Start: 10-31-2017 End: 01-25-2022 take 1 tablet by mouth twice daily as needed for pain Naproxen 500 mg tablet Discontinued 500 mg PO TWICE A DAY as needed for Pain 180 1 November 16, 2018 2:07pm January 25, 2022 4:01pm potassium chloride 10 meq extended release oral capsule (20 sources) Start: 10-31-2017 End: 02-24-2025 take 1 capsule by mouth twice daily Potassium Chloride 10 mEq capsule, extended release Discontinued 10 meq PO TWICE A DAY 180 3 February 13, 2024 8:29am February 24, 2025 10:58am Problems Active Problems Problem Classification Problem Date Documented Da te Episodic/Chronic Diabetes mellitus without complication (4 sources) Hyperglycemia; Translations: [Impaired fasting glucose] 12-22-2020 Episodic Esophageal disorders (2 sources) Gastric reflux; Translations: [Gastro-esophageal reflux disease without esophagitis] 02-24-2025 Chronic Essential hypertension (7 sources) Hypertensive disorder; Translations: [Essential (primary) hypertension] Chronic Fluid and electrolyte disorders (5 sources) Hypokalemia; Translations: [Hypokalemia] Episodic Immunizations and screening for infectious disease (1 source) Encounter for immunization; Translations: [Encounter for immunization] Onset: 02-24-2025 Episodic Osteoarthritis (4 sources) Arthritis; Translations: [Unspecified osteoarthritis, unspecified site] 12-31-2017 Chronic Other screening for suspected conditions (not mental disorders or infectious disease) (2 sources) Patient encounter status; Translations: [Encounter for other screening for malignant neoplasm of breast] Onset: 03-10-2025 02-18-2024 Episodic Other upper respiratory disease (4 sources) Seasonal allergy; Translations: [Other seasonal allergic rhinitis] 12-31-2017 Chronic Otitis media and related conditions (3 sources) Acute right otitis media; Translations: [Otitis media, unspecified, right ear] 01-28-2021 Episodic Unclassified (1 source) Unknown / UNK(Unknown) Onset: 11-24-2016 Past or Other Problems Problem Classification Problem Date Documented Da te Episodic/Chronic Unclassified (1 source) I10 Onset: 11-24-2016 Results Test Name Value Interpretation Reference Range Facility SCRN MAMM (CAD)W/JUAN LUIS BILATo n 03-10-2025 SCRN MAMM (CAD)W/JUAN LUIS BILAT [facility] Imaging Services [address] [place], [place] [address] SCRN MAMM (CAD)W/JUAN LUIS BILAT MR#: [id number] Acct: [id number] Name: FRANKDEVONTE Delano Rep #: [id number] : 1950 F 75 From: Herbert montgomery MD PCP: Dr. Cortez Chambers, DO Status: [facility] Study: SCRN MAMM (CAD)W/JUAN LUIS BILAT Date of Exam: 02/12 01/05 Exam# [id number] Ordering Dr: Cortez Chambers DO EXAM: SCRN MAMM (CAD)W/JUAN LUIS BILAT DATE: 03/10/2025 CLINICAL HISTORY: F, Age 75 y/o , SCREENING No family history. Prior right ultrasound-guided breast biopsy. TECHNIQUE: Procedure Code: [id number] Modality: MG Procedure: SCRN MAMM (CAD)W/JUAN LUIS BILAT COMPARISON: Prior exam(s) dated February 28, 2024.. FINDINGS: TISSUE DENSITY: There are scattered areas of fibroglandular density. Bilateral Breast Mammographic Findings: No significant masses, calcifications or other abnormalities are identified. A tissue clip marker is seen along the anterior inferior medial aspect of the right breast. No suspicious masses, areas of developing architectural distortion, or suspicious calcifications. There has been no significant interval change. BI/SCRN MAMM (CAD)W/JUAN LUIS BILAT IMPRESSION: Stable bilateral screening mammogram. OVERALL FINAL ASSESSMENT BI-RADS 2: BENIGN RECOMMENDATION: Routine annual follow-up in 1 Year Additional Recommendation none A letter with findings and recommendations will be mailed to the patient. Reading Location: [id number] CC: Dr. Cortez Chambers DO Cannery Tender Engineer: Signed Normal [facility] Internal Medicine Office Vis iton 02-24-2025 Internal Medicine Office Visit [facility] Internal Medicine [facility] [place] [address] OFFICE VISIT Date of Service: 02/24/25 MR#: [id number] Acct: [id number] Name: DEVONTE MARIE Rep #: [id number] : 1950 Provider: Dr. Cortez jamil DO Age/Sex: 75/F Location: [facility] Status: Signed with Addenda ADDENDUM by Usha Philippe on 02/24/25 at 1125 Office Procedure Documentation entered by Usha Philippe 02/24/25 11:25: Immunizations Fluad 65yr up(PF)45 mcg(15 mcgx3)/0.5 mL intramuscular syringe Performing Provider: Cortez Chambers DO Performing Location: [facility] Administered by: Usha Philippe on 02/24/25 11:24 Dose Route Admin Location Dispensed Lot Number Expiration Date Package NDC NDC [employer] 45 mcg IM Left Arm (SQ) 0.5 mL [id number] 09/08/25 [id number] [address] [employer], [employer]. VIS Given Date VIS Provided VIS Publication Date 02/24/25 Single Vaccine 24 Eligibility Eligibility Date Funding Source Not Applicable Administration Comments: chichi injection patient tolerated well Date cc: * Signed Intake Vital Signs 02/12/24 10:44 02/24/25 10:39 Height 5 ft 1 in 5 ft 1 in Weight: 189 lb BMI 35.6 BP 128/80 H Blood Pressure Location Lt brachial Position Sitting Respiration 16 Pulse 78 Pulse Source Monitor Temp 97.4 F L Temp Source Temporal Pulse Oximetry (%) 98 Oxygen Delivery Method room air Intake Visit Reasons: Yearly Chief Complaint: YEARLY CHECK UP Waist Presser Required: No Accompanied by: Self Is patient in pain?: No Allergies Sulfa (Sulfonamide Antibiotics) Allergy (Mild, Verified 02/24/25 10:31) Hives Medications ???Medication ???Instructions ???Recorded ???Confirmed ???Type calcium 600 mg (as 1 ea PO BID SUPPLEMENT 12/27/17 History carbonate)-vitamin D3 10 mcg (400 unit) tablet fexofenadine 180 mg tablet 180 mg PO DAILY PRN Allergies 12/1202/24/25 History mmdrfgtvtcx-bmk-nshz dr-vit 2 ea PO DAILY SUPPLEMENT 12/27/17 02/24/25 History D3-Boswel 750 mg-162.5 mg-1,000 unit tablet acetaminophen 650 mg 650 mg PO Q12H PRN 02/01/23 History tablet,extended release (Tylenol Arthritis Pain) olmesartan 40 mg tablet 40 mg PO DAILY bp #90 tabs 4 02/24/25 Rx Have you fallen in the past year?: No Nurse's Note: burning and acid indigestion with almost all foods patient needs refills on medication PFSH Medical History PONV (postoperative nausea and vomiting) Wears glasses Wears dentures Walker as ambulation aid Heartburn Non-smoker Arthritis Hypertension Seasonal allergies Surgical History Hx of right knee surgery History of left knee surgery History of cholecystectomy History of tubal ligation Family History Mother Myocardial infarction Hypertension Father Hypertension CVA (cerebral vascular accident) Social History adopted: No household members: spouse number of children: 2 current occupational status: retired pets and animals: No Smoking Status: Never smoker alcohol intake: never substance use type: does not use caffeine: Yes (2) Type: coffee what type of physical activity do you participate in: walking frequency: 3-4 times per week seatbelt use: always do you feel safe at home: Yes HPI HPI Chief Complaint: YEARLY CHECK UP Details: DEVONTE MARIE, is a 75 F who presents to the office today for her yearly checkup. She needs blood work and her mammogram ordered. Her only concern that she is having continuing heartburn. Pain starts in the epigastrium and radiates up with the chest and it is worse if she eats tomatoes or other acidic type of foods. She has always had this to a slight degree but it is much worse recently. ROS Const Constitutional: No body ache, excessive sweating, fatigue, fever(s), frequent falls, headache(s), snoring, weakness, weight change, sleep problems or change in appetite Eyes Eyes: No blurry vision, change in vision, eye pain or Light sensitivity ENT ENT: No abnormal hearing, ear or mastoid pain, tinnitus, nasal congestion, headache(s), neck pain or sore throat Resp Respiratory: No cough, shortness of breath, snoring or wheezing Cardio Cardiology: No chest pain at rest, chest pain with exertion, excessive sweating, shortness of breath, dyspnea on exertion, lightheadedness, orthopnea or palpitations Gastro GI: No abdominal pain, change in bowel habits, constipation, cramping, diarrhea, nausea/dyspepsia (more content not included)... Normal [facility] Basophil percentageOrdered B y: Cortez Brown on 02-02-2023 Bilirubin [Mass/Vol] 0.30 mg/dL 0.20-1.00 [facility] Comment on above: For patients on eltr ombopag therapy, use of Dimension [place] TBIL is not recommended. Chloride [Moles/Vol] 113 mmol/L 98-107 [facility] Cholesterol [Mass/Vol] 161 mg/dL <200 [facility] Comment on above: <200 mg/dL Desirable 200-240 mg/dL Borderline >240 mg/dL High Risk Glucose [Mass/Vol] 98 mg/dL 74-106 [facility] Potassium [Moles/Vol] 3.6 mmol/L 3.5-5.1 [facility] Protein [Mass/Vol] 6.9 g/dL 6.4-8.2 [facility] Sodium [Moles/Vol] 143 mmol/L 136-145 [facility] Triglyceride [Mass/Vol] 84 mg/dL <199 [facility] Comment on above: The drugs N-Acetylcy steine and Metamizole may falsely depress this assay.Serum Triglycerides Reference Interval Normal <150 mg/dL Borderline high 150 - 199 mg/dL High 200 - 499 mg/dL Very High > or = 500 mg/dL Laboratory - Chemistry and C hemistry - challengeOrdered By: Cortez Chambers on 02-02-2023 ALP [Catalytic activity/Vol] 74 U/L 45-117 [facility] ALT [Catalytic activity/Vol] 26 U/L 13-56 [facility] CO2 [Moles/Vol] 25.0 mmol/L 21.0-32.0 [facility] Globulin (S) [Mass/Vol] 3.4 g/dL 2.2-4.2 [facility] Urea nitrogen/Creatinine [Mass ratio] 37.2 mg/mg 10-20 [facility] No Panel InformationOrdered By: Cortez Chambers on 02-02-2023 Estimated GFR (MDRD) Amer 116 mL/min >60 [facility] Comment on above: GFR Calc Estimated GFR (MDRD) Non-Af Amer 96 mL/min >60 [facility] Comment on above: Non- GFR Calc Serum or plasma albumin marissa urement (mass/volume)Ordered By: Cortez Chambers on 02-02-2023 Albumin [Mass/Vol] 3.5 g/dL 3.2-5.0 [facility] Serum or plasma albumin/glob ulin mass ratioOrdered By: Cortez Chambers on 02-02-2023 Albumin/Globulin [Mass ratio] 1.0 {ratio} 0.9-2.4 [facility] Serum or plasma calcium marissa urement (mass/volume)Ordered By: Cortez Chambers on 02-02-2023 Calcium [Mass/Vol] 9.1 mg/dL 8.5-10.1 [facility] Serum or plasma cholesterol in HDL measurement (mass/volume)Ordered By: Cortez Chambers on 02-02-2023 Cholesterol in HDL [Mass/Vol] 55 mg/dL >40 [facility] Comment on above: The drugs N-Acetylcy steine and Metamizole may falsely depress this assay. Reference Range HDL <40 mg/dL Low HDL Cholesterol HDL >or= 60 mg/dL High HDL Cholesterol Serum or plasma cholesterol in VLDL measurement (mass/volume)Ordered By: Cortez Chambers on 02-02-2023 Cholesterol in VLDL [Mass/Vol] 17 mg/dL 5-40 [facility] Serum or plasma creatinine m easurement (mass/volume)Ordered By: Cortez Chambers on 02-02-2023 Creatinine [Mass/Vol] 0.65 mg/dL 0.55-1.02 [facility] Comment on above: The validity of the calculated GFR & GFRAA in patients over 70 years has not been determined. Clinical correlation is essential. Serum or plasma low density lipoprotein (LDL) cholesterol measurement (mass/volume)Ordered By: Cortez Chambers on 02-02-2023 Cholesterol in LDL [Mass/Vol] 89 mg/dL 0-130 [facility] Serum or plasma urea nitroge n measurement (mass/volume)Ordered By: Cortez Chambers on 02-02-2023 Urea nitrogen [Mass/Vol] 24 mg/dL 7-18 [facility] Thin prep Papanicolaou smear with manual screeningOrdered By: [facility] on 02-02-2023 Thin prep Papanicolaou smear with manual screening 17 U/L 15-37 [facility] Thin prep Papanicolaou smear with manual screening 5 5-15 [facility] Basophil percentageon 2021 Chloride [Moles/Vol] 106 mmol/L 98-107 [facility] Work Phone: Glucose [Mass/Vol] 104 mg/dL 74-106 [facility] Work Phone: Comment on above: Fasting Glucose resu lt from 100 to 125 mg/dL suggests IMPAIRED HOMEOSTASIS per A.D.A. criteria. Potassium [Moles/Vol] 3.6 mmol/L 3.5-5.1 [facility] Work Phone: Sodium [Moles/Vol] 140 mmol/L 136-145 [facility] Work Phone: Laboratory - Chemistry and C hemistry - challengeon 01-26-2022 CO2 [Moles/Vol] 28.0 mmol/L 21.0-32.0 [facility] Work Phone: Urea nitrogen/Creatinine [Mass ratio] 21.7 mg/mg 10-20 [facility] Work Phone: No Panel Informationon 01-26 Estimated GFR (MDRD) Amer 93 mL/min >60 [facility] Work Phone: Comment on above: GFR Calc Estimated GFR (MDRD) Non-Af Amer 77 mL/min >60 [facility] Work Phone: Comment on above: Non- GFR Calc Serum or plasma calcium marissa urement (mass/volume)on 01-26-2022 Calcium [Mass/Vol] 9.4 mg/dL 8.5-10.1 [facility] Work Phone: Serum or plasma creatinine m easurement (mass/volume)on 01-26-2022 Creatinine [Mass/Vol] 0.78 mg/dL 0.55-1.02 [facility] Work Phone: Comment on above: The validity of the calculated GFR & GFRAA in patients over 70 years has not been determined. Clinical correlation is essential. Serum or plasma urea nitroge n measurement (mass/volume)on 01-26-2022 Urea nitrogen [Mass/Vol] 17 mg/dL 7-18 [facility] Work Phone: Thin prep Papanicolaou smear with manual screeningon 01-26-2022 Thin prep Papanicolaou smear with manual screening 6 5-15 [facility] Work Phone: Basic Metabolic Panelon 11-11 Glucose mass conc 86 mg/dL Normal 80-115 [facility] Comment on above: Performed By: #### B MP ####[place] [address] [address] BUN/Creatinine Ratio 23 mg/mg Normal 7-27 [facility] Comment on above: Performed By: #### B MP ####[place] [address] [address] Calcium 9.1 mg/dL Normal 8.4-10.2 [facility] Comment on above: Performed By: #### B MP ####[place] [address] [address] CO2 27 mmol/L Normal 23-31 [facility] Comment on above: Performed By: #### B MP ####[place] [address] [address] Creatinine 0.7 mg/dL Normal 0.6-1.2 [facility] Comment on above: Performed By: #### B MP ####[address] [address] Electrolyte Balance 9.0 mEq/L Normal [facility] Comment on above: Performed By: #### B MP ####[address] [address] Urea nitrogen 16 mg/dL Normal 7-18 [facility] Comment on above: Performed By: #### B MP ####[address] [address] Chloride 107 mmol/L Normal 98-107 [facility] Comment on above: Performed By: #### B MP ####[address] [address] Potassium molar conc 3.6 mmol/L Normal 3.5-5.1 [facility] Comment on above: Performed By: #### B MP ####[place] [address] [address] Sodium 143 mmol/L Normal 136-146 [facility] Comment on above: Performed By: #### B MP ####[address] [address] Glomerular Filtration Rate Kimberley bolaños 11-24-2016 eGFR (non-black) mL/min/{1.73_m2} Normal [facility] Comment on above: Result Comment: Rosy gloria mean GFR = 85 mL/min/1.73 sq.m. for ages 60-69 years. Chronic Kidney Disease: Less than 60 mL/min/1.73 square metersEnd Stage Renal Disease: Less than 15 mL/min/1.73 square meters Performed By: #### G ####[address] [address] Vital Signs Date Time Vital Sign Value Performing Clinician Faci ismael 02-24-2025 10:39-0400 Body height 154.[address] Cortez Chambers DO Work Phone: [facility] 02-24-2025 10:39-0400 Body mass index (BMI) [Ratio] 35.6 kg/m2 Dr. Cortez Chambers DO Work Phone: [facility] 02-24-2025 10:39-0400 Body temperature 97.4 [degF] Dr. Cortez Chambers DO Work Phone: [facility] 02-24-2025 10:39-0400 Body weight 85.[address] Cortez Chambers DO Work Phone: [facility] 02-24-2025 10:39-0400 Diastolic blood pressure 80 mm[Hg] Dr. Cortez Chambers DO Work Phone: [facility] 02-24-2025 10:39-0400 Heart rate 78 /min Dr. Cortez Chambers DO Work Phone: [facility] 02-24-2025 10:39-0400 Respiratory rate 16 /min Dr. Cortez Chambers DO Work Phone: [facility] 02-24-2025 10:39-0400 SaO2% (BldA) [Mass fraction] 98 % Dr. Cortez Chambers DO Work Phone: [facility] 02-24-2025 10:39-0400 Systolic blood pressure 128 mm[Hg] Dr. Cortez Chambers DO Work Phone: [facility] 02-01-2023 15:54-0400 Body height 154.[address] Cortez Chambers Work Phone: [facility] 02-01-2023 15:54-0400 Body mass index (BMI) [Ratio] 34.9 kg/m2 Dr. Cortez Chambers Work Phone: [facility] 02-01-2023 15:54-0400 Body temperature 99 [degF] Dr. Cortez Chambers Work Phone: [facility] 02-01-2023 15:54-0400 Body weight 83.[address] Cortez Chambers Work Phone: [facility] 02-01-2023 15:54-0400 Diastolic blood pressure 78 mm[Hg] Dr. Cortez Chambers Work Phone: [facility] 02-01-2023 15:54-0400 Heart rate 75 /min Dr. Cortez Chambers Work Phone: [facility] 02-01-2023 15:54-0400 Respiratory rate 16 /min Dr. Cortez Chambers Work Phone: [facility] 02-01-2023 15:54-0400 SaO2% (BldA) [Mass fraction] 96 % Dr. Cortez Chambers Work Phone: [facility] 02-01-2023 15:54-0400 Systolic blood pressure 138 mm[Hg] Dr. Cortez Chambers Work Phone: [facility] 01-25-2022 16:00-0400 Body height 154.[address] Cortez Chambers Work Phone: [facility] Work Phone: 01-25-2022 16:00-0400 Body mass index (BMI) [Ratio] 33.4 kg/m2 Dr. Cortez Chambers Work Phone: [facility] Work Phone: 01-25-2022 16:00-0400 Body temperature 97 [degF] Dr. Cortez Chambers Work Phone: [facility] Work Phone: 01-25-2022 16:00-0400 Body weight 80.[address] Cortez Chambers Work Phone: [facility] Work Phone: 01-25-2022 16:00-0400 Diastolic blood pressure 82 mm[Hg] Dr. Cortez Chambers Work Phone: [facility] Work Phone: 01-25-2022 16:00-0400 Heart rate 80 /min Dr. Cortez Chambers Work Phone: [facility] Work Phone: 01-25-2022 16:00-0400 Respiratory rate 16 /min Dr. Cortez Chambers Work Phone: [facility] Work Phone: 01-25-2022 16:00-0400 SaO2% (BldA) [Mass fraction] 97 % Dr. Cortez Chambers Work Phone: [facility] Work Phone: 01-25-2022 16:00-0400 Systolic blood pressure 118 mm[Hg] Dr. Cortez Chambers Work Phone: [facility] Work Phone: 11-17-2021 10:15-0400 Body mass index (BMI) [Ratio] 34.2 kg/m2 Dr. Cortez Chambers Work Phone: [facility] Work Phone: 11-17-2021 10:15-0400 Body temperature 97.6 [degF] Dr. Cortez Chambers Work Phone: [facility] Work Phone: 11-17-2021 10:15-0400 Body weight 82.[address] Cortez Chambers Work Phone: [facility] Work Phone: 11-17-2021 10:15-0400 Diastolic blood pressure 80 mm[Hg] Dr. Cortez Chambers Work Phone: [facility] Work Phone: 11-17-2021 10:15-0400 Heart rate 74 /min Dr. Cortez Chambers Work Phone: [facility] Work Phone: 11-17-2021 10:15-0400 Respiratory rate 18 /min Dr. Cortez Chambers Work Phone: [facility] Work Phone: 11-17-2021 10:15-0400 SaO2% (BldA) [Mass fraction] 97 % Dr. Cortez Chambers Work Phone: [facility] Work Phone: 11-17-2021 10:15-0400 Systolic blood pressure 128 mm[Hg] Dr. Cortez Chambers Work Phone: [facility] Work Phone: Encounters Encounter Date Encounter Type Care Provider Facility Start: 03-10-2025 ambulatory Cortez Jeffries y:[facility] Start: 02-24-2025 End: 02-24-[address] Cortez Hudson DO -[facility] Work Phone: Start: 02-24-2025 End: 02-24-[address] Cortez Hudson DO [facility] Start: 02-24-2025 End: 02-24-[address] Cortez Chambers DO Work Phone: -[facility] Start: 02-19-2023 End: 02-19-[address] Cortez Chambers Work Phone: [facility] Work Phone: Start: 02-19-2023 End: 02-19-[address] Cortez Chambers Work Phone: [facility] Work Phone: Start: 02-02-2023 End: 02-02-[address] Cortez Chambers Work Phone: [facility], [place] Start: 02-01-[address] Jeffry Chambers Work Phone: [facility] Start: 02-01-2023 End: 02-01-2023 Encounter for general adult medical examination without abnormal findings Dr. Cortez Chambers Work Phone: [facility] Start: 02-01-2023 End: 02-01-[address] Cortez Chambers Work Phone: [facility] Work Phone: Start: 02-14-2022 End: 02-14-[address] Cortez Chambers Work Phone: [facility] Work Phone: Start: 02-14-2022 End: 02-14-[address] Cortez Chambers Work Phone: [facility] Start: 01-26-2022 End: 01-26-[address] Cortez Chambers Work Phone: [facility], [place] Start: 01-25-2022 End: 01-25-[address] Cortez Chambers Work Phone: [facility] Start: 11-17-2021 End: 11-17-[address] Cortez Chambers Work Phone: [facility] Start: 11-24-2016 End: 11-25-2016 Ambulatory CORTEZ CHAMBERS Facility:[facility] Date Procedure Procedure Detail Performing Clinician Start: 02-14-2022 Screening mammography Heather Chambers Work Phone: History of operative procedure on knee Hx of right knee surgery Dr. Cortez Chambers Work Phone: Plan of Treatment Date Care Activity Detail Author Start: 03-10-2025 MG Breast - bilatera l Screening [facility] Start: 02-19-2023 MG Breast - bilatera l Screening [facility] Start: 02-19-2023 Screening mammography SCRN NIKUNJ M (CAD)W/JUAN LUIS BILAT [facility] Immunizations Immunization Date Immunization Notes Care Provider [facility] 02-24-2025 Seasonal trivalent influenza vaccine, adjuvanted, preservative free Dr. Cortez Chambers DO Work Phone: [facility] 02-12-2024 Seasonal trivalent influenza vaccine, adjuvanted, preservative free Dr. Cortez Chambers DO Work Phone: [facility] 02-21-2023 influenza, injectabl e, quadrivalent, preservative free Dr. Cortez Chambers DO Work Phone: [facility] 02-15-2022 Influenza, injectabl e, Madin [place] Canine Kidney, preservative free, quadrivalent Dr. Cortez Chambers DO Work Phone: [facility] 02-19-2021 Influenza High-Dose Quadrivalent Dr. Cortez Chambers DO Work Phone: [facility] 02-04-2020 Influenza, injectabl e, Madin [place] Canine Kidney, preservative free, quadrivalent Dr. Cortez Chambers DO Work Phone: [facility] 02-28-2019 influenza, injectabl e, quadrivalent, preservative free Dr. Cortez Chambers DO Work Phone: [facility] 03-10-2018 Influenza, injectabl e, Madin [place] Canine Kidney, preservative free, quadrivalent Dr. Cortez Chambers DO Work Phone: [facility] 03-10-2018 influenza, injectabl e, quadrivalent, preservative free Dr. Cortez Chambers Work Phone: [facility] 03-10-2018 influenza, seasonal, injectable Dr. Cortez Chambers Work Phone: [facility] Work Phone: 03-07-2017 Influenza, injectabl e, Madin [place] Canine Kidney, preservative free, quadrivalent Dr. Cortez Chambers DO Work Phone: [facility] 03-05-2016 influenza, injectabl e, quadrivalent, preservative free Dr. Cortez Chambers DO Work Phone: [facility] 02-07-2015 influenza, injectabl e, quadrivalent, preservative free Dr. Cortez Chambers DO Work Phone: [facility] 02-08-2014 influenza, injectabl e, quadrivalent, preservative free Dr. Cortez Chambers DO Work Phone: [facility] 02-11-2013 influenza, injectabl e, quadrivalent, preservative free Dr. Cortez Chambers DO Work Phone: [facility] Payers Date Payer Category Payer Self-pay [id number] 2024 Private Health Insurance 102 [id number] 2014 Unknown [id number] Medicare MEDICARE PART A B [id number] Unknown [id number] Unknown [id number] Social History Date Type Detail Facility Start: 01-25-2022 End: 02-01-2023 Tobacco smoking status NHIS Unknown if ever smoked [facility] Start: 1950 Sex Assigned At Female [facility] Start: 02-12-2024 Tobacco smoking stat us NHIS Never smoked tobacco (finding) [facility] Sex Female [facility] Medical Equipment Procedure Code Equipment Code Equipment Origin al Text Equipment Identifier Dates SCP KIT W/ACCUPO RT SIDE CANNUL FDA Start: 12-31-2017 SCP Knee Kit FDA Start: 06-03-2021 SCP KIT W/ACCUPO RT SIDE CANNUL FDA Start: 12-31-2017 SCP Knee Kit FDA Start: 06-03-2021 SCP KIT W/ACCUPO RT SIDE CANNUL FDA Start: 12-31-2017 SCP Knee Kit FDA Start: 06-03-2021 Progress note 02-24-2025 Note Date & Type Note Facility 02-24-2025 Progress note [facility] Evaluation note Note Date & Type Note Facility Evaluation note Diagnosis Onset Date Hypertension chronic Hypokalemia acute Hypertension [facility] Work Phone: Evaluation note Note Date & Type Note Facility Evaluation note Diagnosis Onset Date Elevated fasting glucose acu te Well adult exam acute Hypertension [facility] Work Phone: Evaluation note Note Date & Type Note Facility Evaluation note Diagnosis Onset Date Resolution Gastric reflux acute February 242024 10:25am Hypokalemia acute February 24, 2025 10:25am Well adult exam acute February 112024 10:25am Arthritis chronic February 24, 2025 10:25am Hypertension chronic February 10:25am Seasonal allergies chronic Octobe r 2024 10:25am [facility] Work Phone: Progress note Note Date & Type Note Facility Progress note Note Date/Time February 24, 2025 11:09am [facility] [address] [place] [address] [place] [address] OFFICE VISIT Date of Service: 02/24/25 MR#: [id number] Acct: [id number] Name: DEVONTE MARIE Rep #: [id number] : 1950 Provider: Dr. Blake Chambers, Age/Sex: 75/F Location: [facility] [place] Status: Signed with Addenda ADDENDUM by Usha Philippe on 02/24/25 at 1125 Office Procedure Documentation entered by Usha Philippe 02/24/25 11:25: Immunizations Fluad 2024- 65yr up(PF)45 mcg(15 mcgx3)/0.5 mL intramuscular syringe Performing Provider: Cortez Chambers DO Performing Location: [facility] Administered by: Usha Philippe on 02/24/25 11:24 Dose Route Admin Location Dispensed Lot Number Expiration Date Pack age NDC NDC [employer] 45 mcg IM Left Arm (SQ) 0.5 mL [id number] 09/08/25 [id number] [employer], [employer]. VIS Given Date VIS Provided VIS Publication Date 02/24/25 Single Vaccine 24 Eligibility Eligibility Date Funding Source Not Applicable Administration Comments: chichi injection patient tolerated well Date _ cc: ~* Signed Intake Vital Signs 02/12/24 10:44 02/24/25 10:39 Height 5 ft 1 in 5 ft 1 in Weight: 189 lb BMI 35.6 BP 128/80 H Blood Pressure Location Lt brachial Position Sitting Respiration 16 Pulse 78 Pulse Source Monitor Temp 97.4 F L Temp Source Temporal Pulse Oximetry (%) 98 Oxygen Delivery Method room air Intake Visit Reasons: Yearly Chief Complaint: YEARLY CHECK UP Waist Presser Required: No Accompanied by: Self Is patient in pain?: No Allergies Sulfa (Sulfonamide Antibiotics) Allergy (Mild, Verified 02/24/25 10:31) Hives Medications ?Medication ?Instructions ?Recorded ?Confirmed ?Type calcium 600 mg (as 1 ea PO BID SUPPLEMENT 12/2702/24/25 History carbonate)-vitamin D3 10 mcg (400 unit) tablet fexofenadine 180 mg tablet 180 mg PO DAILY PRN Allergi es 12/27/17 02/24/25 History gmfezrjqdyp-enz-icupgk-vit 2 ea PO DAILY SUPPLEMENT 02/24/25 History D3-Boswel 750 mg-162.5 mg-1,000 unit tablet acetaminophen 650 mg 650 mg PO Q12H PRN 02/01/23 02/24/25 History tablet,extended release (Tylenol Arthritis Pain) olmesartan 40 mg tablet 40 mg PO DAILY bp #90 tabs 1 02/24/25 Rx Have you fallen in the past year?: No Nurse's Note: burning and acid indigestion with almost all foods patient needs refills on medication [facility] Medical History PONV (postoperative nausea and vomiting) Wears glasses Wears dentures Walker as ambulation aid Heartburn Non-smoker Arthritis Hypertension Seasonal allergies Surgical History Hx of right knee surgery History of left knee surgery History of cholecystectomy History of tubal ligation Family History Mother Myocardial infarction Hypertension Father Hypertension CVA (cerebral vascular accident) Social History adopted: No household members: spouse number of children: 2 current occupational status: retired pets and animals: No Smoking Status: Never smoker alcohol intake: never substance use type: does not use caffeine: Yes (2) Type: coffee what type of physical activity do you participate in: walking frequency: 3-4 times per week seatbelt use: always do you feel safe at home: Yes HPI HPI Chief Complaint: YEARLY CHECK UP Details: DEVONTE MARIE, is a 75 F who presents to the office today for her yearly checkup. She needs blood work and her mammogram ordered. Her only concern that she is having continuing heartburn. Pain starts in the epigastrium and radiates up with the chest and it is worse if she eats tomatoes or other acidic type of foods. She has always had this to a slight degree but it is much worse recently. ROS Const Constitutional: No body ache, excessive sweating, fatigue, fever(s), frequent falls, headache(s), snoring, weakness, weight change, sleep problems or change in appetite Eyes Eyes: No blurry vision, change in vision, eye pain or Light sensitivity ENT ENT: No abnormal hearing, ear or mastoid pain, tinnitus, nasal congestion, headache(s), neck pain or sore throat Resp Respiratory: No cough, shortness of breath, snoring or wheezing Cardio Cardiology: No chest pain at rest, chest pain with exertion, excessive sweating,shortness of breath, dyspnea on exertion, lightheadedness, orthopnea or palpitations Gastro GI: No abdominal pain, change in bowel habits, constipation, cramping, diarrhea,nausea/dyspepsia or vomiting Genitourinary-Female: No burning urination, painful urination, urinary incontinence, urinary frequency, blood in urine, abnormal periods or pelvic pain Musc Musculoskeletal: No abnormal gait, joint pain, back pain, limited range of motion, neck pain, numbness, stiffness, tingling or Arthritis Skin Skin: No dry skin, redness, lesions, itchy eyes, rash or wounds Neuro Neurology: No abnormal gait, abnormal hearing, abnormal speech, dizziness, weakness, frequent falls, headache(s), memory loss, numbness or tingling Psych Psychiatric: No anxiety, No change in appetite, No depression, No memory loss and No Thoughts of harming yourself/Others Endo Endocrine: No cold intolerance, excessive sweating, fatigue, flushing, heat intolerance, increased thirst/drinking, increased hunger or weight change Aller/Imm Allergy/Immunologic: No itchy eyes, seasonal allergy symptoms, hives or wheezing Devon/Lymp Hematologic/Lymphatic: No easy bleeding, easy bruising or enlarged lymph nodes Exam Const General: cooperative and well developed Nutritional Appearance: overweight Orientation: alert, awake and oriented x3 Limitations: mental status not altered HENMT Head: normal to inspection and atraumatic Ears: hearing grossly normal bilaterally, TM's normal bilaterally and EAC's normal Nose: external nose normal Face and sinus: normal facial exam Mouth: oral mucosae normal Teeth and gingiva: edentulous Eyes General: appearance normal, both eyes and all related structures Periorbital: periorbital findings normal Eyelids: eyelids normal Conjunctivae: conjunctivae normal Neck Neck: normal visual inspection, full ROM, no lymphadenopathy and supple Neck mass: No Thyroid: thyroid normal Resp Effort & Inspection: normal respiratory effort, able to speak in complete sentences, symmetric chest movement, normal respiratory pattern, no audible wheezes and no cough Auscultation: Bilateral: Clear to Auscultation Cardio Rate: regular rate Rhythm: regular rhythm GI Inspection: normal to inspection Auscultation: normal bowel sounds Musc Musculoskeletal: No joint tenderness (Both knees.) Skin General: no rashes or lesions noted Trauma: no lacerations or abrasions Wounds: no wounds Neuro General: patient alert, patient oriented x3 and gait normal Extrem General: normal to inspection Psych Appearance: grossly normal Mental Status: mental status grossly normal Mood: congruent mood Affect: normal affect Speech and Movement: speech and movement normal Attitude: cooperative Thought Process: normal Thought Content: normal Coding Level of Care Code Off vis,est,level 4 Diagnoses Well adult exam Z00.00 Primary hypertension I10 Hypertension type: primary hypertension Hypokalemia E87.6 Arthritis M19.90 Seasonal allergies J30.2 Gastric reflux K21.9 Assessment and Plan Assessment and Plan (1) Well adult exam: Status: Acute Plan: There has been essentially no change in her physical examination since the last time I examined her. (2) Hypertension: Status: Chronic Qualifiers: Hypertension type: primary hypertension Qualified Code(s): I10 - Essential (primary) hypertension Plan: Her blood pressure is well-controlled (3) Hypokalemia: Status: Acute Plan: She has had to take potassium for a long time since the hydrochlorothiazide is caused some degree of hypokalemia. (4) Arthritis: Status: Chronic Plan: She has some minimal joint pain but nothing of significance and it is much better since she has retired. (5) Seasonal allergies: Status: Chronic Plan: Allergies have not been a problem this year. (6) Gastric reflux: Status: Acute Plan: She has significant gastric reflux. I told her what I would like to do is have her stop take the hydrochlorothiazide and because of stopping that she no longerneeds to take the potassium. Potassium chloride is a significant gastric irritant. I will follow her in a month at which time she will get her blood work drawn make sure her potassium is okay we will recheck her blood pressure tomake sure stopping the hydrochlorothiazide did not cause any significant increase and see if that eliminated her gastric problems, if not I will start her on a proton pump inhibitor. Orders: Orders Influenza Immunization Today Z23 - Encounter for immunization SCRN MAMM (CAD)W/JUAN LUIS BILAT Today Medications: New Fluad 9770-7154 (65 yr up)(PF) 45 mcg (15 mcg x 3)/0.5 mL (flu vac 2024 [id number](PF)) 45 mcg IM ONCE 0.5 mL 0RF NS Z23 - Encounter for immunization Discontinued hydrochlorothiazide Discontinued Reason: Discontinued by PCP/other physicians 12.5 mg PO DAILY 90 tabs 3RF potassium chloride ER Discontinued Reason: Discontinued by PCP/other physicians 10 mEq PO BID 180caps 3RF Plan Details Follow Up: 1 Month Clinical Quality Measures Falls Risk Screening/Assistive Devices Have you fallen in the past year?: No 02/24/25 1112 <Electronically signed by Cortez ram DO> Date _ Cortez Chambers DO Cosigner Signature: Date (if applicable) CC: ~ [facility] Work Phone: Reason for referral (narrative) Note Date & Type Note Facility Reason for referral (narrative) No reason for referral information available [facility] Work Phone: Summary Purpose Family History No Family History Records Found Relationship Condition Age at Onset Recorded Date/T yoselin mother Myocardial infarction Unknown Hypertension Unknown father Hypertension Unknown Cerebrovascular accident (CVA) Unknown Advance Directives No Advanced Directives Records Found Advance Directive Response Recorded Date/ Time Living Will No May 23 3:07pm Power of Plant Mechanic No May 23, 2021 3:07pm Chief Complaint and Reason for Visit Chief Complaint Med refills FOLLOW UP SCREENING Reason for Visit Hypertension Hypokalemia Hypertension Chief Complaint YEARLY CHECK UP SCREENING Reason for Visit Elevated fasting glu cose Well adult exam Hypertension Chief Complaint Admit Date Yearly February 24, 2025 1 0:25am Reason for Visit Admit Date Gastric reflux February 24, 2025 1 0:25am Hypokalemia February 24, 2025 1 0:25am Well adult exam February 24, 2025 1 0:25am Arthritis February 24, 2025 1 0:25am Hypertension February 24, 2025 1 0:25am Seasonal allergies February 24, 2025 1 0:25am Additional Source Comments INFORMATION SOURCE (unrecogn ized section and content) DATE CREATED AUTHOR 11/07/2017 [facility] ([place]) DATE CREATED AUTHOR AUTHOR'S ORGANIZ ATION 11/07/2017 [facility] DATE CREATED AUTHOR AUTHOR'S ORGANIZ ATION 03/11/2025 [facility] Goals (unrecognized section and content) Goals may be documented in a n alternate sectionGoals may be documented in an alternate sectionGoals may be documented in an alternate section Care Teams (unrecognized sec tion and content) Team Status: Active Member Role Status Dates Dr. Cortez Chambers , DO Family Provider Active Dr. Cortez Chamebrs , DO Primary Care Provider Active Team Status: Inactive Member Role Status Dates Dr. Cortez Chambers , Primary Care Pr ovider, Attending Provider, Referring Provider Active Team Status: Active Member Role/Relationship Status Dates Dr. Cortez Chambers , DO Primary care physician Active Team Status: Inactive Member Role/Relationship Status Dates Dr. Cortez Chambers DO Primary care physician Active Start: February 24, 2025 End: February 24, 2025 Dr. Cortez Chambers DO Attending physician Active Start: February 24, 2025 End: February 24, 2025 Dr. Cortez Chambers DO Referring Provider Active Start: February 24, 2025 End: February 24, 2025 FOR RECORDS PERTAINING TO PATIENTS WHO ARE OR HAVE BEEN ENROLLED IN A CHEMICAL DEPENDENCY/SUBSTANCEABUSE PROGRAM, SOME INFORMATION MAY BE OMITTED. This clinical summary was aggregated from multiple sources. Caution should be exercised in using it in the provision of clinical care. This summary normalizes information from multiple sources, and as a consequence, information in this document may materially change the coding, format and clinical context of patient data. In addition, data may be omitted in some cases. CLINICAL DECISIONS SHOULD BE BASED ON THE PRIMARY CLINICAL RECORDS. [facility] [employer] [facility]. provides no warranty or guarantee of the accuracy or completeness of information in this document.
== END | disposition home or self-care (01) ==
LOC: LAB 10:11
PROVIDERS: PCP Family Medicine; Referring Provider Family Medicine; Visit Provider Family Medicine
DX: Z00.00 Encounter for general adult medical examination without abnormal findings (principal)

== ENCOUNTER → 2025-04-01 | Outpatient (CLI) | payer MEDICARE, SELFPAY ==
[2025-04-01 09:29] LABS: Hematocrit 43.7 % (37-47); Hemoglobin 14.6 g/dL (12.0-15.0); Immature Granulocytes Count 0.020 X10^3/uL (0.0-0.0); Mean Corp Hgb Conc 33.4 g/dL (32-36); Mean Corpuscular Volume 92.0 fL (81-99); Mean Platelet Vol. 9.7 fl (6.2-12.0); NRBC Flagged by Analyzer 0 % (0-5); Platelet Count 147 K/mm3 (150-450); RBC Distribution Width CV 12.3 % (11.6-14.6); RBC Distribution Width SD 41.7 fl (35.1-43.9); Red Blood Count 4.75 M/mm3 (4.2-5.4); White Blood Count 5.3 K/mm3 (4.4-11.0)
[2025-04-01 09:52] LABS: AST(SGOT) 24 U/L (<=31); Alanine Aminotransfer ALT/SGPT 19 U/L (<=34); Albumin, Serum 4.2 g/dL (3.4-4.8); Alkaline Phosphatase 50 U/L (35-104); Anion Gap 9 (5-15); BUN 14 mg/dL (4-19); BUN/Creat Ratio 19.9 RATIO (10-20); Calcium,Total 9.9 mg/dL (7.6-11.0); Carbon Dioxide 25.7 mmol/L (21.0-32.0); Chloride 105 mmol/L (98-108); Globulin 3.0 g/dL (2.2-4.2); Glucose 112 mg/dL (70-99); Potassium 3.7 mmol/L (3.3-5.1)
--- OUTSIDE RECORDS SUMMARY | 2025-04-01 09:53 | XMS RPT_ITS | CCD ---
Author Organization [facility] Care Team Providers Care Line Builder Name Role Phone BROWNCORTEZ Unavailable Unavailable BROWN, CORTEZ R Unavailable Unavailable ARLYN, CORTEZ R Unavailable Unavailable ARLYN, CORTEZ R Unavailable Unavailable ARLYN, CORTEZ R Unavailable Unavailable Dr. Cortez Chambers Primary Care Provider [phone] Dr. Cortez Chambers Referring Provider [phone] EDYTA Ledesma Attending Provider Unavailab Dr. Cortez Holt Attending Provider [phone] Dr. Cortez Chambers Primary Care Provider [phone] [phone] Dr. Cortez Chambers Attending Provider [phone] Dr. Cortez Chambers Referring Provider [phone] Cortez Chambers DO Primary Care Physician Dr. Cortez Chambers DO Attending Physician [phone] Dr. Cortez Chambers DO Referring Provider [phone] Cortez Chambers Primary Care Unavailable Cortez Chambers Attending Unavailable Cortez Chambers Referring Unavailable Cortez Chambers Attending Unavailable Cortez Chambers Referring Unavailable Cortez Chambers Primary Care Unavailable Cortez Chambers Attending Unavailable Cortez Chambers Referring Unavailable Cortez Chambers Primary Care Unavailable Allergies Allergy Classification Reported Allergen(s) Allergy Type Date of Onset Reaction(s) Facility (3 sources) Sulfonamides (Antibiotic) Allergy to substance 2 [facility] (1 source) Sulfonamides (Antibiotic) Drug allergy (disorder) [address] [facility] Repository Medications Current Medications Medication Drug [...] tablet by mouth once daily as needed Ctukmlhjjml-Jji-Pqvwq r-D3-Bosw (2 sources) Start: 12-27-2017 Glucosamine-M sm-Nquyse-T7- Bosw Active 2 EACH PO DAILY December 27, 2017 12:00am Okggwwvdufy-Dma-Salmd r-D3-Bosw 1 EACH tablet (1 source) Start: [...] mg tablet Discontinued 12.5 mg PO DAILY 90 February 13, 2024 8:29am February 24, 2025 10:58am Start: 03-18-2019 End: 11-17-2021 take 1 tablet by mouth once daily Hydrochlorothiazide 25 mg tablet Discontinued 25 mg PO DAILY 90 December 16, 2020 4:22pm November 17, 2021 10:26am hydroCHLOROthiazide 25 mg / losartan potassium 100 mg oral tablet (9 sources) Thiazide Diuretic, Angiotensin 2 Receptor Matthew Start: 12-05-2017 End: 11-12-2018 Losartan-Hydrochlorothiazide 100-25 mg tablet Discontinued 1 {tbl} PO daily 90 April 17, 2018 2:16pm November 12, 2018 2:38pm BP Start: 12-05-2017 End: 11-12-2018 take 1 tablet by mouth once daily Losartan-Hydrochlorothiazide Discontinue d 1 TABLET PO daily 90 April 17, 2018 2:16pm November 12, 2018 2:38pm hydroCHLOROthiazide 25 mg / olmesartan medoxomil 40 mg oral tablet (9 sources) Thiazide Diuretic, Angiotensin 2 Receptor Matthew Start: 12-18-2018 End: 12-16-2020 Olmesartan-Hydrochlorothiazi de 40-25 mg tablet Discontinued 1 {tbl} PO DAILY 90 December 18, 2018 12:00am December 16, 2020 4:18pm Start: 12-18-2018 End: 12-16-2020 take 1 tablet by mouth once daily Olmesartan-Hydrochlorothiazide Discontin ued 1 TABLET PO DAILY 90 December 18, 2018 12:00am December 16, 2020 4:18pm Start: 12-04-2018 End: 12-18-2018 Olmesartan-Hydrochlorothiazi de 40-12.5 mg tablet Discontinued 1 {tbl} PO DAILY 90 December 04, 2018 12:00am [...] tablet Discontinued 1 {tbl} PO daily 90 October 31, 2017 4:25pm December 05, 2017 8:54am Start: 10-31-2017 End: 12-05-2017 take 1 tablet by mouth once daily Valsartan-Hydrochlorothiazide Discontinu ed 1 TABLET PO daily 90 October 31, 2017 4:25pm December 05, 2017 [...] n 03-10-2025 SCRN MAMM (CAD)W/JUAN LUIS BILAT [facility] [address] [place] [address] [id number] SCRN MAMM (CAD)W/JUAN LUIS BILAT MR#: [id number] Acct: [id number] Name: DEVONTE MARIE Rep #: [id number] : 1950 F 75 From: Herbert montgomery MD PCP: Dr. Cortez Chambers, Status: REG CLI Study: SCRN MAMM (CAD)W/JUAN LUIS BILAT Date of Exam: 02/12 01/05 Exam# [id number] Ordering Dr: Cortez Chambers DO EXAM: SCRN [...] be mailed to the patient. Reading Location: [id number] CC: Dr. Cortez Chambers DO Food Equipment Service Technician: Signed Normal [facility] Internal Medicine Office Vis ito 02-24-2025 Internal Medicine Office Visit [facility] Internal Medicine [address] [place] [address] OFFICE VISIT Date of Service: 02/24/25 MR#: [id number] Acct: [id number] Name: DEVONTE MARIE Rep #: [id number] : 1950 Provider: Dr. Cortez jamil DO Age/Sex: 75/F Location: [facility] Status: Signed with Addenda ADDENDUM by Usha Philippe on 02/24/25 at 1125 Office Procedure Documentation entered by Usha Philippe 02/24/25 11:25: Immunizations Fluad 2024- 65yr up(PF)45 mcg(15 mcgx3)/0.5 mL intramuscular syringe Performing Provider: Cortez Chambers DO Performing Location: [facility] Administered by: Usha Philippe on 02/24/25 11:24 Dose Route Admin Location Dispensed Lot Number Expiration Date Package NDC NDC Mental Health Program Specialist 45 mcg IM Left Arm (SQ) 0.5 mL [id number] 09/08/25 10216-091-55 [id number] [employer] VIS Given Date VIS Provided VIS Publication [...] Reasons: Yearly Chief Complaint: YEARLY CHECK UP Brush Cutter Required: No Accompanied by: Self Is patient in pain?: No Allergies Sulfa (Sulfonamide Antibiotics) Allergy (Mild, Verified 02/24/25 10:31) Hives Medications ???Medication ???Instructions ???Recorded ???Confirmed ???Type calcium 600 mg (as 1 ea PO BID SUPPLEMENT 12/27/17 History carbonate)-vitamin D3 10 mcg (400 unit) tablet fexofenadine 180 mg tablet 180 mg PO DAILY PRN Allergies 12/1202/24/25 History dskmmjqmbwy-kgx-vnnv dr-vit 2 ea PO DAILY SUPPLEMENT 12/27/17 [...] diarrhea, nausea/dyspepsia (more content not included)... Normal [facility] Basophil percentageOrdered B y: Cortez Brown on 02-02-2023 Bilirubin [Mass/Vol] 0.30 mg/dL 0.20-1.00 [facility] Comment on above: For patients on eltr ombopag therapy, use of Dimension [place] TBIL is not recommended. Chloride [Moles/Vol] 113 mmol/L 98-107 [facility] Cholesterol [Mass/Vol] 161 mg/dL <200 [facility] Comment on above: <200 mg/dL Desirable 200-240 mg/dL Borderline >240 mg/dL High Risk Glucose [Mass/Vol] 98 mg/dL 74-106 [facility] Potassium [Moles/Vol] 3.6 mmol/L 3.5-5.1 [facility] Protein [Mass/Vol] 6.9 g/dL 6.4-8.2 [facility] Sodium [Moles/Vol] 143 mmol/L 136-145 [facility] Triglyceride [Mass/Vol] 84 mg/dL <199 [facility] Comment on above: The drugs N-Acetylcy steine and Metamizole may falsely depress this assay.Serum Triglycerides Reference Interval Normal <150 mg/dL Borderline high 150 - 199 mg/dL High 200 - 499 mg/dL Very High > or = 500 mg/dL Laboratory - Chemistry and C hemistry - challengeOrdered By: Cortez Chambers on 02-02-2023 ALP [Catalytic activity/Vol] 74 U/L 45-[address] [facility] ALT [Catalytic activity/Vol] 26 U/L 13-[address] [facility] CO2 [Moles/Vol] 25.0 mmol/L 21.0-32.[address] [facility] Globulin (S) [Mass/Vol] 3.4 g/dL 2.2-4.2 [facility] Urea nitrogen/Creatinine [Mass ratio] 37.2 mg/mg 10-[address] [facility] No Panel InformationOrdered By: Cortez Chambers on 02-02-2023 Estimated GFR (MDRD) Amer 116 mL/min >[address] [facility] Comment on above: GFR Calc Estimated GFR (MDRD) Non-Af Amer 96 mL/min >[address] [facility] Comment on above: Non- GFR Calc Serum or plasma albumin marissa urement (mass/volume)Ordered By: Cortez Chambers on 02-02-2023 Albumin [Mass/Vol] 3.5 g/dL 3.2-5.0 [facility] Serum or plasma albumin/glob ulin mass ratioOrdered By: Cortezkush Chambers on 02-02-2023 Albumin/Globulin [Mass ratio] 1.0 {ratio} 0.9-2.[address] [facility] Serum or plasma calcium marissa urement (mass/volume)Ordered By: Cortez Chambers on 02-02-2023 Calcium [Mass/Vol] 9.1 mg/dL 8.5-10.1 [facility] Serum or plasma cholesterol in HDL measurement (mass/volume)Ordered By: Cortez Chambers on 02-02-2023 Cholesterol in HDL [Mass/Vol] 55 mg/dL >[address] [facility] Comment on above: The drugs N-Acetylcy steine and Metamizole may falsely depress this assay. Reference Range HDL <40 mg/dL Low HDL Cholesterol HDL >or= 60 mg/dL High HDL Cholesterol Serum or plasma cholesterol in VLDL measurement (mass/volume)Ordered By: Cortez Chambers on 02-02-2023 Cholesterol in VLDL [Mass/Vol] 17 mg/dL 5-[address] [facility] Serum or plasma creatinine m easurement (mass/volume)Ordered By: Cortez Chambers on 02-02-2023 Creatinine [Mass/Vol] 0.65 mg/dL 0.55-1.02 [facility] Comment on above: The validity of the calculated GFR & GFRAA in patients over 70 years has not been determined. Clinical correlation is essential. Serum or plasma low density lipoprotein (LDL) cholesterol measurement (mass/volume)Ordered By: Cortez Chambers on 02-02-2023 Cholesterol in LDL [Mass/Vol] 89 mg/dL 0-[address] [facility] Serum or plasma urea nitroge n measurement (mass/volume)Ordered By: Cortez Chambers on 02-02-2023 Urea nitrogen [Mass/Vol] 24 mg/dL 7-[address] [facility] Thin prep Papanicolaou smear with manual screeningOrdered By: Cortezkush Chambers on 02-02-2023 Thin prep Papanicolaou smear with manual screening 17 U/L 15-[address] [facility] Thin prep Papanicolaou smear with manual screening 5 5-[address] [facility] Basophil percentageon 2021 Chloride [Moles/Vol] 106 mmol/L 98-107 [facility] Work Phone: Glucose [Mass/Vol] 104 mg/dL 74-106 [facility] Work Phone: Comment on above: Fasting Glucose resu lt from 100 to 125 mg/dL suggests IMPAIRED HOMEOSTASIS per A.D.A. criteria. Potassium [Moles/Vol] 3.6 mmol/L 3.5-5.1 [facility] Work Phone: Sodium [Moles/Vol] 140 mmol/L 136-145 [facility] Work Phone: Laboratory - Chemistry and C hemistry - challengeon 01-26-2022 CO2 [Moles/Vol] 28.0 mmol/L 21.0-32.[address] [facility] Work Phone: Urea nitrogen/Creatinine [Mass ratio] 21.7 mg/mg 10-[address] [facility] Work Phone: No Panel Informationon 01-26 Estimated GFR (MDRD) Amer 93 mL/min >[address] [facility] Work Phone: Comment on above: GFR Calc Estimated GFR (MDRD) Non-Af Amer 77 mL/min >[address] [facility] Work Phone: Comment on above: Non- GFR Calc Serum or plasma calcium marissa urement (mass/volume)on 01-26-2022 Calcium [Mass/Vol] 9.4 mg/dL 8.5-10.1 [facility] Work Phone: Serum or plasma creatinine m easurement (mass/volume)on 01-26-2022 Creatinine [Mass/Vol] 0.78 mg/dL 0.55-1.02 [facility] Work Phone: Comment on above: The validity of the calculated GFR & GFRAA in patients over 70 years has not been determined. Clinical correlation is essential. Serum or plasma urea nitroge n measurement (mass/volume)on 01-26-2022 Urea nitrogen [Mass/Vol] 17 mg/dL 7-[address] [facility] Work Phone: Thin prep Papanicolaou smear with manual screeningon 01-26-2022 Thin prep Papanicolaou smear with manual screening 09-[address] [facility] Work Phone: Basic Metabolic Panelon 11-11 Glucose mass conc 86 mg/dL Normal 80-115 [facility] Comment on above: Performed By: #### B MP ####[address] [address] BUN/Creatinine Ratio 23 mg/mg Normal 7-27 [facility] Comment on above: Performed By: #### B MP ####[place] [address] [address] Calcium 9.1 mg/dL Normal 8.4-10.2 [facility] Comment on above: Performed By: #### B MP ####[place] [address] [address] CO2 27 mmol/L Normal 23-31 [facility] Comment on above: Performed By: #### B MP ####[place] [address] [address] Creatinine 0.7 mg/dL Normal 0.6-1.2 [facility] Comment on above: Performed By: #### B MP ####[place] [address] [address] Electrolyte Balance 9.0 mEq/L Normal [facility] Comment on above: Performed By: #### B MP ####[place] [address] [address] Urea nitrogen 16 mg/dL Normal 7-18 [facility] Comment on above: Performed By: #### B MP ####[address] [address] Chloride 107 mmol/L Normal 98-107 [facility] Comment on above: Performed By: #### B MP ####[address] [address] Potassium molar conc 3.6 mmol/L Normal 3.5-5.1 [facility] Comment on above: Performed By: #### B MP ####[place] [address] [address] Sodium 143 mmol/L Normal 136-146 [facility] Comment on above: Performed By: #### B MP ####[address] [address] Glomerular Filtration Rate Kimberley corbinon 11-24-2016 eGFR (non-black) mL/min/{1.73_m2} Normal [facility] Comment on above: Result Comment: Rosy gloria mean GFR = 85 mL/min/1.73 sq.m. for ages 60-69 years. Chronic Kidney Disease: Less than 60 mL/min/1.73 square metersEnd Stage Renal Disease: Less than 15 mL/min/1.73 square meters Performed By: #### G FR ####[address] [address] Vital Signs Date Time Vital Sign Value Performing Clinician Armond guevara 02-24-2025 10:39-0400 Body height 154.[address] Cortez Chambers DO Work Phone: [facility] 02-24-2025 10:39-0400 Body mass index (BMI) [Ratio] 35.6 kg/m2 Dr. Cortez Chambers DO Work Phone: [facility] 02-24-2025 10:39-0400 Body temperature 97.4 [degF] Dr. Cortez Chambers DO Work Phone: [facility] 02-24-2025 10:39-0400 Body weight 85.[address] Cortez Chambers DO Work Phone: [facility] 02-24-2025 10:39-0400 Diastolic blood pressure 80 mm[Hg] Dr. Cortez Chambers DO Work Phone: [facility] 02-24-2025 10:39-0400 Heart rate 78 /min Dr. Cortez Chambers DO Work Phone: [facility] 02-24-2025 10:39-0400 Respiratory rate 16 /min Dr. Cortez Chambers DO Work Phone: [facility] 02-24-2025 10:39-0400 SaO2% (BldA) [Mass fraction] 98 % Dr. Cortez Chambers DO Work Phone: [facility] 02-24-2025 10:39-0400 Systolic blood pressure 128 mm[Hg] Dr. Cortez Chambers DO Work Phone: [facility] 02-01-2023 15:54-0400 Body height 154.[address] Cortez Chambers Work Phone: [facility] 02-01-2023 15:54-0400 Body mass index (BMI) [Ratio] 34.9 kg/m2 Dr. Cortez Chambers Work Phone: [facility] 02-01-2023 15:54-0400 Body temperature 99 [degF] Dr. Cortez Chambers Work Phone: [facility] 02-01-2023 15:54-0400 Body weight 83.[address] Cortez Chambers Work Phone: [facility] 02-01-2023 15:54-0400 Diastolic blood pressure 78 mm[Hg] Dr. Cortez Chambers Work Phone: [facility] 02-01-2023 15:54-0400 Heart rate 75 /min Dr. Cortez Chambers Work Phone: [facility] 02-01-2023 15:54-0400 Respiratory rate 16 /min Dr. Cortez Chambers Work Phone: [facility] 02-01-2023 15:54-0400 SaO2% (BldA) [Mass fraction] 96 % Dr. Cortez Chambers Work Phone: [facility] 02-01-2023 15:54-0400 Systolic blood pressure 138 mm[Hg] Dr. Cortez Chambers Work Phone: [facility] 01-25-2022 16:00-0400 Body height 154.[address] Cortez Chambers Work Phone: [facility] Work Phone: 01-25-2022 16:00-0400 Body mass index (BMI) [Ratio] 33.4 kg/m2 Dr. Cortez Chambers Work Phone: [facility] Work Phone: 01-25-2022 16:00-0400 Body temperature 97 [degF] Dr. Cortez Chambers Work Phone: [facility] Work Phone: 01-25-2022 16:00-0400 Body weight 80.[address] oCrtez Chambers Work Phone: [facility] Work Phone: 01-25-2022 16:00-0400 Diastolic blood pressure 82 mm[Hg] Dr. Cortez Chambers Work Phone: [facility] Work Phone: 01-25-2022 16:00-0400 Heart rate 80 /min Dr. Cortez Chambers Work Phone: [facility] Work Phone: 01-25-2022 16:00-0400 Respiratory rate 16 /min Dr. Cortez Chambers Work Phone: [facility] Work Phone: 01-25-2022 16:00-0400 SaO2% (BldA) [Mass fraction] 97 % Dr. Cortez Chambers Work Phone: [facility] Work Phone: 01-25-2022 16:00-0400 Systolic blood pressure 118 mm[Hg] Dr. Cortez Chambers Work Phone: [facility] Work Phone: 11-17-2021 10:15-0400 Body mass index (BMI) [Ratio] 34.2 kg/m2 Dr. Cortez Chambers Work Phone: [facility] Work Phone: 11-17-2021 10:15-0400 Body temperature 97.6 [degF] Dr. Cortez Chambers Work Phone: [facility] Work Phone: 11-17-2021 10:15-0400 Body weight 82.[address] Cortez Chambers Work Phone: [facility] Work Phone: 11-17-2021 10:15-0400 Diastolic blood pressure 80 mm[Hg] Dr. Cortez Chambers Work Phone: [facility] Work Phone: 11-17-2021 10:15-0400 Heart rate 74 /min Dr. Cortez Chambers Work Phone: [facility] Work Phone: 11-17-2021 10:15-0400 Respiratory rate 18 /min Dr. Cortez Chambers Work Phone: [facility] Work Phone: 11-17-2021 10:15-0400 SaO2% (BldA) [Mass fraction] 97 % Dr. Cortez Chambers Work Phone: [facility] Work Phone: 11-17-2021 10:15-0400 Systolic blood pressure 128 mm[Hg] Dr. Cortez Chambers Work Phone: [facility] Work Phone: Encounters Encounter Date Encounter Type Care Provider Facility Start: 03-18-2025 ambulatory Cortez Jeffries y:[facility] Start: 03-10-2025 ambulatory Cortez Jeffries y:[facility] Start: 02-24-2025 End: 02-24-[address] Cortez Husdon DO -[facility] Work Phone: Start: 02-24-2025 End: 02-24-[address] Cortez Hudson DO [facility] Start: 02-24-2025 End: 02-24-[address] Cortez Chambers DO Work Phone: -[facility] Start: 02-19-2023 End: 02-19-[address] Cortez Chambers Work Phone: [facility] Work Phone: Start: 02-19-2023 End: 02-19-[address] Cortez Chambers Work Phone: [facility] Work Phone: Start: 02-02-2023 End: 02-02-[address] [facility] Start: 02-01-[address] Jeffry Chambers Work Phone: [facility] Start: 02-01-2023 End: 02-01-2023 Encounter for general adult medical examination without abnormal findings Dr. Cortez Chambers Work Phone: [facility] Start: 02-01-2023 End: 02-01-[address] Cortez Chambers Work Phone: [facility] Work Phone: Start: 02-14-2022 End: 02-14-[address] Cortez Chambers Work Phone: [facility] Work Phone: Start: 02-14-2022 End: 02-14-[address] Cortez Chambers Work Phone: [facility] Start: 01-26-2022 End: 01-26-[address] Cortez Chambers [facility] Start: 01-25-2022 End: 01-25-[address] Cortez Chambers Work Phone: [facility] Start: 11-17-2021 End: 11-17-[address] Cortez Chambers Work Phone: [facility] Start: 11-24-2016 End: 11-25-2016 Ambulatory CORTEZ CHAMBERS Facility:[facility] Procedures Date Procedure Procedure Detail Performing Clinician Start: 02-14-2022 Screening mammography Heather Chambers Work Phone: History of operative procedure on knee Hx of right knee surgery Dr. Cortez Chambers Work Phone: Plan of Treatment Date Care Activity Detail Author Start: 03-10-2025 MG Breast - bilatera l Screening [facility] Start: 02-19-2023 MG Breast - bilatera l Screening [facility] Start: 02-19-2023 Screening mammography SCRN NIKUNJ M (CAD)W/JUAN LUIS BILAT [facility] Immunizations Immunization Date Immunization Notes Care Provider Fa demario 02-24-2025 Seasonal trivalent influenza vaccine, adjuvanted, preservative free Dr. Cortez Chambers DO Work Phone: [facility] 02-12-2024 Seasonal trivalent influenza vaccine, adjuvanted, preservative free Dr. Cortez Chambers DO Work Phone: [facility] 02-21-2023 influenza, injectabl e, quadrivalent, preservative free Dr. Cortez Chambers DO Work Phone: [facility] 02-15-2022 Influenza, injectabl e, Madin Wooton Canine Kidney, preservative free, quadrivalent Dr. Cortez Chambers DO Work Phone: [facility] 02-19-2021 Influenza High-Dose Quadrivalent Dr. Cortez Chambers DO Work Phone: [facility] 02-04-2020 Influenza, injectabl e, Madin Wooton Canine Kidney, preservative free, quadrivalent Dr. Cortez Chambers DO Work Phone: [facility] 02-28-2019 influenza, injectabl e, quadrivalent, preservative free Dr. Cortez Chambers DO Work Phone: [facility] 03-10-2018 Influenza, injectabl e, Madin Mitali Canine Kidney, preservative free, quadrivalent Dr. Cortez Chambers DO Work Phone: [facility] 03-10-2018 influenza, injectabl e, quadrivalent, preservative free Dr. Cortez Chambers Work Phone: [facility] 03-10-2018 influenza, seasonal, injectable Dr. Cortez Chambers Work Phone: [facility] Work Phone: 03-07-2017 Influenza, injectabl e, Madin Mitali Canine Kidney, preservative free, quadrivalent Dr. Cortez Chambers DO Work Phone: [facility] 03-05-2016 influenza, injectabl e, quadrivalent, preservative free Dr. Cortez Chambers DO Work Phone: [facility] 02-07-2015 influenza, injectabl e, quadrivalent, preservative free Dr. Cortez Chambers DO Work Phone: [facility] 02-08-2014 influenza, injectabl e, quadrivalent, preservative free Dr. Cortez Chambers DO Work Phone: [facility] 02-11-2013 influenza, injectabl e, quadrivalent, preservative free Dr. Cortez Chambers DO Work Phone: [facility] Payers Date Payer Category Payer Self-pay [id number] 2024 Private Health Insurance 102 [id number] 2014 Unknown [id number] Medicare MEDICARE PART A B [id number] Unknown [id number] Unknown [id number] Unknown [id number] Social History Date Type Detail Facility Start: 01-25-2022 End: 02-01-2023 Tobacco smoking status NHIS Unknown if ever smoked [facility] Start: 1950 Sex Assigned At Female [facility] Start: 02-12-2024 Tobacco smoking stat us NHIS Never smoked tobacco (finding) [facility] Sex Female [facility] Medical Equipment Procedure Code Equipment Code [...] & Type Note Facility 02-24-2025 Progress note [facility] Evaluation note Note Date & Type Note Facility Evaluation note Diagnosis Onset Date Hypertension chronic Hypokalemia acute Hypertension [facility] Work Phone: Evaluation note Note Date & Type Note Facility Evaluation note Diagnosis Onset Date Elevated fasting glucose acu te Well adult exam acute Hypertension [facility] Work Phone: Evaluation note Note Date & Type Note Facility Evaluation note Diagnosis Onset Date Resolution Gastric reflux acute February 242024 10:25am Hypokalemia acute February 24, 2025 10:25am Well adult exam acute February 112024 10:25am Arthritis chronic February 24, 2025 10:25am Hypertension chronic February 10:25am Seasonal allergies chronic Octobe r 2024 10:25am [facility] Work Phone: Progress note Note Date & Type Note Facility Progress note Note Date/Time February 24, 2025 11:09am [facility] [address] [place], [place] [address] OFFICE VISIT Date of Service: 02/24/25 MR#: [id number] Acct: [id number] Name: DEVONTE MARIE Rep #: [id number] : 1950 Provider: Dr. Blake Chambers, Age/Sex: 75/F Location: [facility] Status: Signed with Addenda ADDENDUM by Usha Philippe on 02/24/25 at 1125 Office Procedure Documentation entered by Usha Philippe 02/24/25 11:25: Immunizations Fluad 2024- 65yr up(PF)45 mcg(15 mcgx3)/0.5 mL intramuscular syringe Performing Provider: Cortez Chambers DO Performing Location: [facility] Administered by: Usha Philippe on 02/24/25 11:24 Dose Route Admin Location Dispensed Lot Number Expiration Date Pack age NDC NDC Mental Health Program Specialist 45 mcg IM Left Arm (SQ) 0.5 mL [id number] 09/08/25 [id number] [id number] [employer]. VIS Given Date VIS Provided VIS Publication [...] Reasons: Yearly Chief Complaint: YEARLY CHECK UP Brush Cutter Required: No Accompanied by: Self Is patient in pain?: No Allergies Sulfa (Sulfonamide Antibiotics) Allergy (Mild, Verified 02/24/25 10:31) Hives Medications ?Medication ?Instructions ?Recorded ?Confirmed ?Type calcium 600 mg (as 1 ea PO BID SUPPLEMENT 12/2702/24/25 History carbonate)-vitamin D3 10 mcg (400 unit) tablet fexofenadine 180 mg tablet 180 mg PO DAILY PRN Allergi es 12/27/17 02/24/25 History [id number]-[id number]-[id number]-vit 2 ea PO DAILY SUPPLEMENT 02/24/25 History [...] (CAD)W/JUAN LUIS BILAT Today Medications: New Fluad [id number] (65 yr up)(PF) 45 mcg (15 mcg x 3)/0.5 mL (flu vac 2024 [id number](PF)) 45 mcg IM ONCE 0.5 mL 0RF [...] Cosigner Signature: Date (if applicable) CC: ~ [facility] Work Phone: Reason for referral (narrative) Note Date & Type Note Facility Reason for referral (narrative) No reason for referral information available [facility] Work Phone: Summary Purpose Family History No Family History Records Found Relationship Condition Age at Onset Recorded Date/T yoselin mother Myocardial infarction Unknown Hypertension Unknown father Hypertension Unknown Cerebrovascular accident (CVA) Unknown Advance Directives No Advanced Directives Records Found Advance Directive Response Recorded Date/ Time Living Will No May 23 3:07pm Power of Bull Wheel Worker No May 23, 2021 3:07pm Chief Complaint [...] section and content) DATE CREATED AUTHOR 11/07/2017 [facility] ([place]) DATE CREATED AUTHOR AUTHOR'S ORGANIZ ATION 11/07/2017 [facility] DATE CREATED AUTHOR AUTHOR'S ORGANIZ ATION 03/20/2025 [facility] Goals (unrecognized section and content) Goals may be documented in a n alternate sectionGoals may be documented in an alternate sectionGoals may be documented in an alternate section Care Teams (unrecognized sec tion and content) Team Status: Active Member Role Status Dates Dr. Cortez Chambers DO Family Provider Active Dr. Cortez Chambers , DO Primary Care Provider Active Team Status: Inactive Member Role Status Dates Dr. Cortez Chambers DO Primary Care Pr ovider, Attending Provider, Referring Provider Active Team Status: Active Member Role/Relationship Status Dates Dr. Cortez Chambers DO Primary care physician Active Team Status: [...] BE BASED ON THE PRIMARY CLINICAL RECORDS. [employer] [facility]. provides no warranty or guarantee of the accuracy or completeness of information in this document.
== END | disposition home or self-care (01) ==
LOC: LAB 09:01
PROVIDERS: PCP Family Medicine; Referring Provider Family Medicine; Visit Provider Family Medicine
DX: I10 Essential (primary) hypertension (principal); R53.83 Other fatigue
CPT/HCPCS: 36415; 80053; 85025